=== PATIENT | female | born 1930 | race Caucasian/White ===

== ENCOUNTER 2017-10-20 15:08 | Inpatient (IN) | payer MEDICARE, BC ==
[~2017-10-20] VITALS: Ht 165.1 cm; Wt 67.6 kg
[~2017-10-20 15:08] MED LIST: AMLO1TAB2 PO; ASPI-482 PO; CHOL100013 PO; LORA10CA PO; NITR100C62 PO; VALS1TAB14 PO; VALS1TAB18 PO
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
[2017-10-20] MEDS ORDERED: IV NORMAL SALINE 1,000ML 1,000 ML IV SCH (15:30)
[2017-10-20] MEDS ORDERED: DIPHTH,PERTUSS(ACELL),TET TOX 0.5 ML DISP.SYRIN. VAX IM ONE (15:30)
--- NOTE | 2017-10-20 15:45 | EKG ---
[address] [address] Test Date: 2017-10-20 Test Time: 15:40:57 Pat Name: BETTY BLOOM Department: Room: Gender: F Canal Driver: PAULINA : 1930 Requested By: MELIZA HUSAIN Order Number: [id number] Reading MD: Measurements Intervals [place] Rate: 47 P: 0 VT: 176 QRS: 95 QRSD: 112 T: -95 QT: 584 QTc: 521 Interpretive Statements SINUS BRADYCARDIA RIGHTWARD AXIS INCOMPLETE RIGHT BUNDLE BRANCH BLOCK QRS(T) CONTOUR ABNORMALITY CONSIDER INFERIOR MYOCARDIAL DAMAGE T ABNORMALITY IN ANTERIOR LEADS LATERAL LEADS PROLONGED QT ABNORMAL ECG RI6.01 Compared to ECG 09/27/2014 16:02:28 Right-axis deviation now present Incomplete right bundle-branch block now present Prolonged QT interval now present Sinus rhythm no longer present First degree AV block no longer present Left-axis deviation no longer present Myocardial infarct finding no longer present Possible ischemia no longer present T-wave abnormality still present
[2017-10-20 15:54] LABS: BASO # 0.1 x10^3/uL (0.0-0.2); BASO % 0 % (0-3); EOS % 0 % (0-3); HEMATOCRIT 42.1 % (36.0-47.0); LYMPH # 0.7 x10^3/uL (1.0-4.8); LYMPH % 4 % (24-48); MEAN CORPUSCULAR HEMOGLOBIN 30 pg (25-35); MEAN CORPUSCULAR HGB CONC 33 g/dL (31-37); MEAN CORPUSCULAR VOLUME 91 fL (79-100); MONO # 1.2 x10^3/uL (0.0-1.1); MONO % 7 % (0-9); NEUT # 15.3 x10^3uL (1.8-7.7); NEUT % 88 % (31-73); PLATELET COUNT 332 x10^3/uL (140-400); RED BLOOD COUNT 4.63 x10^6/uL (3.50-5.40); WHITE BLOOD COUNT 17.4 x10^3/uL (4.0-11.0)
--- NOTE | 2017-10-20 16:35 | RAD ---
2 views bilateral hip and AP pelvis 10/20/2017 CLINICAL INDICATION: History of left hip fracture and scoliosis, pain after fall. COMPARISON: CT pelvis 09/27/2014. FINDINGS: Internal fixation of the left hip with benign smooth periosteal reaction at the medial aspect of the proximal left femur. There is heterotopic ossification adjacent to the left hip. No evidence of acute fracture or traumatic malalignment. Right femoral head is round without collapse. No evidence of right hip fracture or traumatic malalignment. Mild right hip osteoarthritis. Bilateral proximal thigh vascular calcifications. Right convexity lumbar scoliosis. Diffuse bony demineralization. No diastases of the symphysis pubis or sacroiliac articulations. IMPRESSION: 1. Internal fixation of the left hip without evidence of bony pelvic or bilateral hip fracture or traumatic malalignment. 2. Osteopenia. 3. Mild right hip osteoarthritis. Electronically signed by: Elmer Love MD (10/20/2017 4:32 PM) [facility] [place]
--- NOTE | 2017-10-20 16:42 | RAD ---
CT of the head and cervical spine without contrast History: Patient fell. Head and neck pain. Technique: Standard noncontrast images are obtained through the head and cervical spine. Sagittal and coronal reformations obtained through the facial bones and cervical spine. Exposure: One or more of the following individualized dose reduction techniques were utilized for this examination: 1. Automated exposure control 2. Adjustment of the mA and/or kV according to patient size 3. Use of iterative reconstruction technique. Head Faint low-density in the left cerebellum is thought to be due to beam hardening artifact. No evidence of acute intracranial hemorrhage, mass effect, midline shift or abnormal extra-axial fluid collection. Mild ventricular and sulcal prominence compatible with mild atrophy. Very mild low-density of the white matter bilaterally, a nonspecific finding which is typically due to chronic small vessel ischemic disease in a patient of this age. Intracranial arterial calcifications are identified. Visualized orbits are unremarkable. Visualized paranasal sinuses and mastoids are clear. There is mild deformity of the nasal bones, could indicate a fracture of indeterminate age depending on clinical correlation. No evidence of a depressed skull fracture, although a point of impact is not known. Impression: No evidence of acute intracranial hemorrhage or mass effect. Cervical: Lower skull is unremarkable Ring of C1 is intact Relationship of C1 with the occipital condyles is intact. Relationship of C1 with C2 is maintained. Severe degenerative changes at the articulation of the odontoid process and anterior C1, with some adjacent ossicles. There is posterior soft tissue thickening. Multilevel moderate to severe cervical spondylosis. Facet joint degenerative change. No evidence of jumped or locked facet joint. Mild anterior spondylolisthesis of C4 on C5, measures 5 mm. There is also slight hyperkyphosis here. This is likely degenerative. There is a cervical lordosis. There is at least mild neural foraminal and spinal canal narrowing. No evidence of acute prevertebral swelling or hematoma. Heterogeneity of the thyroid gland. Abnormal opacity in both lung apices would most typically represent scarring. IMPRESSION: 1. Severe degenerative spondylosis. 2. No evidence of acute fracture. 3. Mild anterior subluxation of C4 on C5 with mild hyperkyphosis. This is likely degenerative. However, depending on the level of clinical concern for an acute injury, consider MRI for further evaluation of acute soft tissue injury. Electronically signed by: Carlos Anderson MD (10/20/2017 4:39 PM) [place] [id number]
[2017-10-20 16:47] LABS: BACTERIA,URINE 0 /HPF (0-FEW); BILIRUBIN,URINE NEG (NEG); CLARITY,URINE HAZY; COLOR,URINE YELLOW; GLUCOSE,URINE NEG (NEG); NITRITE,URINE NEG (NEG); SQUAMOUS EPITHELIAL CELL,UR OCC /LPF; UROBILINOGEN,URINE 0.2 mg/dL (0.2 mg/dL); WBC,URINE OCC /HPF (0-4)
[2017-10-20 17:41] LABS: CALCIUM 9.6 mg/dL (8.5-10.1); CREATININE 0.7 mg/dL (0.6-1.0); DIRECT BILIRUBIN 0.3 mg/dL (0.0-0.2); GFR 79.5; MAGNESIUM 2.1 mg/dL (1.8-2.4); POTASSIUM 3.4 mmol/L (3.5-5.1); TOTAL PROTEIN 6.4 g/dL (6.4-8.2)
[2017-10-20] MEDS ORDERED: ASPIRIN 325 MG TABLET PO ONE (18:00)
[2017-10-20] MEDS ORDERED: IV NORMAL SALINE 1,000ML 1,000 ML IV ONE (18:15)
[2017-10-20 19:17] VITALS: BP 143/71
[2017-10-20 19:18] VITALS: BP 143/71
[2017-10-20] MEDS: IV NORMAL SALINE 1,000ML 1,000 ML IV SCH (19:49)
[2017-10-20] MEDS ORDERED: ASPIRIN 81 MG TAB.CHEW PO ONE (20:15)
--- NOTE | 2017-10-20 20:36 | RAD ---
Indication: Pain status post fall. History of left hip replacement. TECHNIQUE: 3 views of the lumbar spine and 3 views of the thoracic spine. COMPARISON: None FINDINGS: Moderate S-shaped scoliosis of the lumbar spine noted without apparent loss of vertebral body heights. There is multilevel loss of intervertebral disc spaces with lower lumbar facet arthropathy. Partially visualized left hip joint appears within normal limits. There is moderate scoliosis of the thoracic spine noted. There is no apparent loss of vertebral body height to suggest significant compression deformity. Multilevel intervertebral disc space narrowing noted. Heart is normal in size. Calcified right paratracheal lymph node noted. Visualized lungs are clear. IMPRESSION: Moderate scoliosis of the thoracolumbar spine limiting optimal evaluation. No apparent loss of vertebral body heights to suggest significant compression deformity. Multilevel degenerative disc disease in the thoracal lumbar spine. If there is a focal tenderness at any particular level then focused CT of the spine may be obtained for further evaluation. Electronically signed by: Daljit Kent DO (10/20/2017 8:33 PM) [facility]
--- NOTE | 2017-10-20 20:45 | RAD ---
Indication: Chest pain status post fall. TECHNIQUE: Portable supine AP chest x-ray COMPARISON: Previous study from 09/27/2014 FINDINGS: Heart is normal in size. Lungs are clear for consolidation. No pneumothorax or pleural effusion. There is a 1.6 cm round radiopacity in the right lower lung zone. Calcified right paratracheal lymph node noted. No acute rib fractures seen. IMPRESSION: 1. No acute cardiopulmonary process. Sub-2 cm nodular opacity in the right lower lung zone may represent a nipple shadow or pulmonary nodule. Nonemergent CT chest recommended for further evaluation. 2. No acute rib fractures visualized. Electronically signed by: Daljit Kent DO (10/20/2017 8:41 PM) [facility]
[2017-10-20] MEDS: ATORVASTATIN CALCIUM 10 MG TABLET. PO SCH (21:55)
[2017-10-20 22:06] LABS: % BASOS 1 % (0-3); % LYMPHS 5 % (24-48); % MONOS 3 % (0-10); % SEGS 91 % (35-66); PLT ESTIMATE INCREASED (ADEQUATE)
[2017-10-20 22:08] LABS: OVALOCYTES OCC; POLYCHROMASIA SLIGHT
[2017-10-20] MEDS ORDERED: CONTRAST GIVEN MC PRN (22:30)
[2017-10-20 22:57] VITALS: BP 110/52
[2017-10-20] MEDS ORDERED: IOHEXOL 300 MG/ML 75 ML VIAL. IV ONE (23:00)
--- NOTE | 2017-10-21 00:43 | RAD ---
CTA Chest with contrast: Clinical History: Omni 300, 75ml IV. Elevated d-dimer Shortness of breath. Axial helical images of the chest were obtained after the administration of 75 cc of IV Omni 300 and timed appropriately for a pulmonary arterial study. Conventional axial reconstruction was performed in addition to coronal, sagittal and bilateral oblique MIP (maximum intensity projection). This study was ordered to detect possible pulmonary embolism. COMPARISON: September 28, 2014 There are no filling defects to suggest pulmonary embolism. There is S-shaped scoliosis of the thoracic spine. There is a tiny left effusion. Linear opacities in the lung bases are seen. There is no mediastinal or hilar lymphadenopathy. The thoracic aorta appears normal. Impression: 1. No evidence of pulmonary embolism. 2. Tiny left effusion. Linear opacities in the lung bases are likely discoid atelectasis. PQRS Compliance Statement: One or more of the following individualized dose reduction techniques were utilized for this examination: 1. Automated exposure control 2. Adjustment of the mA and/or kV according to patient size 3. Use of iterative reconstruction technique Electronically signed by: Rinku Cadet III, MD (10/21/2017 12:40 AM) [facility]
[2017-10-21] MEDS: IV NORMAL SALINE 1,000ML 1,000 ML IV SCH ×3 (04:48→20:30)
[2017-10-21 05:36] VITALS: BP 139/53
[2017-10-21 07:29] LABS: BASO # 0.1 x10^3/uL (0.0-0.2); BASO % 0 % (0-3); EOS # 0.3 x10^3/uL (0.0-0.7); EOS % 2 % (0-3); HEMATOCRIT 35.5 % (36.0-47.0); HEMOGLOBIN 11.8 g/dL (12.0-15.5); LYMPH # 0.9 x10^3/uL (1.0-4.8); LYMPH % 7 % (24-48); MEAN CORPUSCULAR HEMOGLOBIN 30 pg (25-35); MEAN CORPUSCULAR HGB CONC 33 g/dL (31-37); MEAN CORPUSCULAR VOLUME 90 fL (79-100); MONO # 1.2 x10^3/uL (0.0-1.1); MONO % 9 % (0-9); NEUT # 10.8 x10^3uL (1.8-7.7); NEUT % 81 % (31-73); PLATELET COUNT 291 x10^3/uL (140-400); RED BLOOD COUNT 3.93 x10^6/uL (3.50-5.40); WHITE BLOOD COUNT 13.3 x10^3/uL (4.0-11.0)
[2017-10-21 07:43] LABS: CALCIUM 8.8 mg/dL (8.5-10.1); CREATININE 0.9 mg/dL (0.6-1.0); GFR 59.5; POTASSIUM 3.2 mmol/L (3.5-5.1)
[2017-10-21] MEDS: hydroCHLOROthiazide 25 MG TABLET PO SCH (08:54)
[2017-10-21] MEDS: ASPIRIN 81 MG TAB.CHEW PO SCH (08:54)
[2017-10-21] MEDS: amLODIPine BESYLATE 10 MG TABLET PO SCH (08:54)
[2017-10-21] MEDS: CHOLECALCIFEROL (VITAMIN D3) 1,000 UNIT TABLET PO SCH (08:54)
[2017-10-21] MEDS: LOSARTAN 50 MG TABLET. PO SCH (08:55)
[2017-10-21] MEDS: CETIRIZINE HCL 10 MG TABLET PO SCH (08:55)
[2017-10-21] MEDS: NITROFURANTOIN MONOHYD/M-CRYST 100 MG CAPSULE. PO SCH (08:55)
[2017-10-21] MEDS ORDERED: ASPIRIN ENTERIC COATED 81 MG TABLET.DR. PO SCH (09:00)
[2017-10-21] MEDS ORDERED: VALSARTAN PO SCH (09:00)
[2017-10-21] MEDS ORDERED: AMLODIPINE PO SCH (09:00)
[2017-10-21] MEDS ORDERED: ATORVASTATIN PO SCH (09:00)
[2017-10-21] MEDS ORDERED: HYDROCHLOROTHIAZIDE PO SCH (09:00)
[2017-10-21 10:54] VITALS: BP 128/47
[2017-10-21] MEDS: POTASSIUM CHLORIDE 8 MEQ TABLET.ER. PO SCH (12:56)
[2017-10-21] MEDS: CLINDAMYCIN 300 MG in IV DEXTROSE 5% 50 ML IV SCH ×2 (13:00→21:58)
[2017-10-21 15:54] VITALS: BP 132/68
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
[2017-10-21 19:57] VITALS: BP 106/55
[2017-10-21] MEDS: ATORVASTATIN CALCIUM 10 MG TABLET. PO SCH (20:32)
[2017-10-21] MEDS: LACTOBACILLUS RHAMNOSUS GG 1 CAPSULE. PO SCH (20:32)
[2017-10-21] MEDS: NEOMYCIN/BACITRAC/POLY TOPICAL OINTMENT 28GM TUBE. TP SCH (21:12)
[2017-10-21 22:35] VITALS: BP 131/51
[2017-10-22] MEDS: IV NORMAL SALINE 1,000ML 1,000 ML IV SCH (04:00)
[2017-10-22 05:11] VITALS: BP 146/65
[2017-10-22] MEDS: CLINDAMYCIN 300 MG in IV DEXTROSE 5% 50 ML IV SCH (05:21)
[2017-10-22] MEDS ORDERED: POTASSIUM CHLORIDE 8 MEQ TABLET.ER. PO SCH (08:00)
[2017-10-22] MEDS ORDERED: POTASSIUM CHLORIDE 20 MEQ TABLET.ER. PO SCH (08:30)
[2017-10-22] MEDS: NITROFURANTOIN MONOHYD/M-CRYST 100 MG CAPSULE. PO SCH (09:01)
[2017-10-22] MEDS: amLODIPine BESYLATE 10 MG TABLET PO SCH (09:01)
[2017-10-22] MEDS: ASPIRIN 81 MG TAB.CHEW PO SCH (09:01)
[2017-10-22] MEDS: CETIRIZINE HCL 10 MG TABLET PO SCH (09:01)
[2017-10-22] MEDS: LACTOBACILLUS RHAMNOSUS GG 1 CAPSULE. PO SCH (09:01)
[2017-10-22] MEDS: hydroCHLOROthiazide 25 MG TABLET PO SCH (09:01)
[2017-10-22] MEDS: CHOLECALCIFEROL (VITAMIN D3) 1,000 UNIT TABLET PO SCH (09:01)
[2017-10-22] MEDS: LOSARTAN 50 MG TABLET. PO SCH (09:01)
[2017-10-22] MEDS: POTASSIUM CHLORIDE 8 MEQ TABLET.ER. PO SCH (09:02)
[2017-10-22] MEDS: NEOMYCIN/BACITRAC/POLY TOPICAL OINTMENT 28GM TUBE. TP SCH (09:03)
[2017-10-22 09:18] LABS: BASO % 0 % (0-3); EOS # 0.6 x10^3/uL (0.0-0.7); EOS % 5 % (0-3); HEMATOCRIT 39.4 % (36.0-47.0); HEMOGLOBIN 12.8 g/dL (12.0-15.5); LYMPH # 1.4 x10^3/uL (1.0-4.8); LYMPH % 13 % (24-48); MEAN CORPUSCULAR HEMOGLOBIN 30 pg (25-35); MEAN CORPUSCULAR HGB CONC 33 g/dL (31-37); MEAN CORPUSCULAR VOLUME 92 fL (79-100); MONO % 9 % (0-9); NEUT # 8.2 x10^3uL (1.8-7.7); NEUT % 73 % (31-73); PLATELET COUNT 305 x10^3/uL (140-400); RED BLOOD COUNT 4.28 x10^6/uL (3.50-5.40); WHITE BLOOD COUNT 11.3 x10^3/uL (4.0-11.0)
[2017-10-22 09:28] LABS: CALCIUM 8.7 mg/dL (8.5-10.1); CREATININE 0.9 mg/dL (0.6-1.0); GFR 59.5; POTASSIUM 3.4 mmol/L (3.5-5.1)
--- NOTE | 2017-10-22 09:30 | PDOC2 ---
CONSULT Date of Admission DATE: 10/22/17 TIME: 09:21 Reason for Consult: elevated trop Problem List Problems Medical Problems: (1) Weakness Status: Acute History of Present Illness Ms Kauffman is an 84 year old female who presented to the ED after a fall at home. She reports that she was feeling lightheaded and weak and fell. She was unable to get up and crawled to the phone for help. She reports several episodes of weakness including a near fall recently when taking her laundry down her stairs. She denies chest pain or palpitations. She denies any heart problems but does see Dr Montes yearly and has a listed allergy to sotalol though she denies atrial fibrillation. She reports a cough with clear sputum. She reports episodes of diaphoresis and flushed feeling but denies fever. She denies congestive symptoms. She lives in her own home and does her own chores and shopping. Past Medical History arthritis, hypertension, sinusitis, asthma, left hip fracture. Past Surgical History Hysterectomy, tonsillectomy, face lift, left knee replacement, and left hip repair x2. Family History non contributory due to age Social History non smoker, no significant ETOH, no illicit drugs, . Current Medications Current Medications Sodium Chloride 1,000 ml @ 1,000 mls/hr Q1H IV Last administered on 10/20/17at 15:20; Start 10/20/17 at 15:30; Stop 10/20/17 at 16:29; Status DC Diphtheria/ Tetanus/Acell Pertussis (Boostrix) 0.5 ml ONCE ONCE VAX IM Last administered on 10/21/17at 12:58; Start 10/20/17 at 15:30; Stop 10/20/17 at 15:36 ; Status DC Aspirin (Vianney Aspirin) 325 mg 1X ONCE PO ; Start 10/20/17 at 18:00; Stop 10/20 at 18:02; Status DC Sodium Chloride 1,000 ml @ 75 mls/hr 1X ONCE IV ; Start 10/20/17 at 18:15; Stop 10/21/17 at 07:35; Status DC Aspirin (Aspirin Enteric Coated) 81 mg DAILY PO ; Start 10/21/17 at 09:00; Stop 10/21/17 at 09:00; Status DC Nitrofurantoin Macrocrystals (Macrobid) 100 mg DAILY PO Last administered on 09:01; Start 10/21/17 at 09:00 Non-Formulary Medication (Amlodipine/ Atorvastatin (Caduet 10 Mg-10 Mg Tablet)) 1 each DAILY PO ; Start 10/21/17 at 09:00; Status UNV Vitamin D (Vitamin D3) 1,000 unit DAILY PO Last administered on 10/22/17 09:01 ; Start 10/21/17 at 09:00 Cetirizine HCl (ZyrTEC) 10 mg DAILY PO Last administered on 10/22/17 09:01; Start 10/21/17 at 09:00 Non-Formulary Medication (Valsartan/ Hydrochlorothiazide (Diovan Hct 160-25 Mg Tablet)) 1 each DAILY PO ; Start 10/21/17 at 09:00; Status UNV Sodium Chloride 1,000 ml @ 125 mls/hr Q8H IV Last administered on 10/22/17 04 :00; Start 10/20/17 at 20:00 Amlodipine Besylate (Norvasc) 10 mg DAILY PO Last administered on 10/22/17 09: 01; Start 10/21/17 at 09:00 Atorvastatin Calcium (Lipitor) 10 mg QHS PO Last administered on 10/21/17 20: 32; Start 10/20/17 at 21:00 Losartan Potassium (Cozaar) 100 mg DAILY PO Last administered on 10/22/17 09: 01; Start 10/21/17 at 09:00 Hydrochlorothiazide (Hydrodiuril) 25 mg DAILY PO Last administered on 09:01; Start 10/21/17 at 09:00 Aspirin (Children'S Aspirin) 324 mg 1X ONCE PO Last administered on 10/20/17at 20:16; Start 10/20/17 at 20:15; Stop 10/20/17 at 20:16; Status DC Aspirin (Children'S Aspirin) 81 mg DAILYWBKFT PO Last administered on 09:01; Start 10/21/17 at 08:00 Iohexol (Omnipaque 300 Mg/ml) 75 ml 1X ONCE IV Last administered on 10/21/17at 00:14; Start 10/20/17 at 23:00; Stop 10/20/17 at 23:01; Status DC Info (Do NOT chart on this entry -- for MONITORING) 1 each PRN DAILY PRN MC SEE COMMENTS; Start 10/20/17 at 22:30; Stop 10/22/17 at 22:29 Potassium Chloride (Klor-Con 8) 8 meq DAILYWBKFT PO ; Start 10/22/17 at 08:00; Stop 10/22/17 at 08:00; Status DC Potassium Chloride (Klor-Con 8) 8 meq DAILYWBKFT PO Last administered on at 09:02; Start 10/21/17 at 11:00 Clindamycin Phosphate 300 mg/ Dextrose 52 ml @ 104 mls/hr Q8HRS IV Last administered on 10/22/17at 05:21; Start 10/21/17 at 14:00 Lactobacillus Rhamnosus (Culturelle) 1 cap BID PO Last administered on at 09:01; Start 10/21/17 at 21:00 Neomycin/ Polymyxin/ Bacitracin (Triple Antibiotic) 1 haylee BID TP Last administered on 10/22/17at 09:03; Start 10/21/17 at 21:00 Potassium Chloride (Klor-Con) 20 meq DAILYWBKFT PO Last administered on at 09:03; Start 10/22/17 at 08:30 Active Scripts Active Reported Macrobid 100 Mg Capsule (Nitrofurantoin Monohyd/M-Cryst) 100 Mg Capsule 100 Mg PO DAILY Diovan Hct 160-25 Mg Tablet (Valsartan/Hydrochlorothiazide) 1 Each Tablet 1 Each PO DAILY Caduet 10 Mg-10 Mg Tablet (Amlodipine/Atorvastatin) 1 Each Tablet 1 Each PO DAILY Aspir 81 (Aspirin) 81 Mg Tablet.dr 81 Mg PO DAILY Vitamin D (Cholecalciferol (Vitamin D3)) 1,000 Unit Capsule 1,000 Unit PO DAILY Claritin (Loratadine) 10 Mg Capsule 10 Mg PO DAILY Allergies: Coded Allergies: Sulfa (Sulfonamide Antibiotics) (Verified Allergy, Intermediate, 09/27/14) aspirin (Verified Allergy, Intermediate, 09/27/14) only vianney adult aspirin carvedilol (Verified Allergy, Intermediate, 09/27/14) cefdinir (Verified Allergy, Intermediate, 09/27/14) ciprofloxacin (Verified Allergy, Intermediate, 09/27/14) clarithromycin (Verified Allergy, Intermediate, 09/27/14) codeine (Verified Allergy, Intermediate, 09/27/14) eprosartan (Verified Allergy, Intermediate, 09/27/14) etodolac (Verified Allergy, Intermediate, 09/27/14) guaifenesin (Verified Allergy, Intermediate, 09/27/14) levallorphan (Verified Allergy, Intermediate, 09/27/14) meloxicam (Verified Allergy, Intermediate, 09/27/14) methocarbamol (Verified Allergy, Intermediate, 09/27/14) oxaprozin (Verified Allergy, Intermediate, 09/27/14) penicillin G (Verified Allergy, Intermediate, 09/27/14) quinine (Verified Allergy, Intermediate, 09/27/14) ropinirole (Verified Allergy, Intermediate, 09/27/14) sotalol (Verified Allergy, Intermediate, 09/27/14) tetracycline (Verified Allergy, Intermediate, 09/27/14) egg (Verified Allergy, Mild, 09/29/14) General: Alert, Oriented X3, Cooperative, No acute distress, Other (scoliosis) HEENT: Atraumatic, Other (right facial droop, chronic) Lungs: Other (decreased bases, otherwise clear) Heart: Other (regular rhythm, bradycardic) Abdomen: Normal bowel sounds, Soft, No tenderness Extremities: No cyanosis, Other (trace edema, chronic venous stasis changes) Neuro: Other (weakness) Psych/Mental Status: Mental status NL, Mood NL VITALS Vital Signs Date Time Temp Pulse Resp B/P (MAP) Pulse Ox O2 Delivery O2 Flow Rate FiO2 10/22/17 09:01 42 146/65 10/22/17 08:00 Room Air 10/22/17 05:11 97.4 18 96 Labs Laboratory Tests Test 10/20/17 15:35 10/20/17 16:25 10/20/17 19:25 10/20/17 20:55 White Blood Count 17.4 x10^3/uL (4.0-11.0) Red Blood Count 4.63 x10^6/uL (3.50-5.40) Hemoglobin 14.0 g/dL (12.0-15.5) Hematocrit 42.1 % (36.0-47.0) Mean Corpuscular Volume 91 fL (79-100) Mean Corpuscular Hemoglobin 30 pg (25-35) Mean Corpuscular Hemoglobin Concent 33 g/dL (31-37) Red Cell Distribution Width 14.0 % (11.5-14.5) Platelet Count 332 x10^3/uL (140-400) Neutrophils (%) (Auto) 88 % (31-73) Lymphocytes (%) (Auto) 4 % (24-48) Monocytes (%) (Auto) 7 % (0-9) Eosinophils (%) (Auto) 0 % (0-3) Basophils (%) (Auto) 0 % (0-3) Neutrophils # (Auto) 15.3 x10^3uL (1.8-7.7) Lymphocytes # (Auto) 0.7 x10^3/uL (1.0-4.8) Monocytes # (Auto) 1.2 x10^3/uL (0.0-1.1) Eosinophils # (Auto) 0.0 x10^3/uL (0.0-0.7) Basophils # (Auto) 0.1 x10^3/uL (0.0-0.2) Segmented Neutrophils % 91 % (35-66) Lymphocytes % 5 % (24-48) Monocytes % 3 % (0-10) Basophils % 1 % (0-3) Platelet Estimate Increased (ADEQUATE) Large Platelets Occ Polychromasia Slight Ovalocytes Occ Sodium Level 143 mmol/L (136-145) Potassium Level 3.4 mmol/L (3.5-5.1) Chloride Level 107 mmol/L (98-107) Carbon Dioxide Level 25 mmol/L (21-32) Anion Gap 11 (6-14) Blood Urea Nitrogen 27 mg/dL (7-20) Creatinine 0.7 mg/dL (0.6-1.0) Estimated GFR (Cockcroft-Gault) 79.5 Glucose Level 89 mg/dL (70-99) Calcium Level 9.6 mg/dL (8.5-10.1) Magnesium Level 2.1 mg/dL (1.8-2.4) Total Bilirubin 1.0 mg/dL (0.2-1.0) Direct Bilirubin 0.3 mg/dL (0.0-0.2) Aspartate Amino Transf (AST/SGOT) 151 U/L (15-37) Alanine Aminotransferase (ALT/SGPT) 83 U/L (14-59) Alkaline Phosphatase 54 U/L (46-116) Creatine Kinase 3080 U/L (26-192) Creatine Kinase MB (Mass) 99.5 ng/mL (0.0-3.6) Creatine Kinase MB Relative Index 3.2 % (0-4) Troponin I Quantitative 0.232 ng/mL (0-0.055) 0.203 ng/mL (0-0.055) Total Protein 6.4 g/dL (6.4-8.2) Albumin 3.0 g/dL (3.4-5.0) Thyroid Stimulating Hormone (TSH) 1.241 uIU/mL (0.358-3.740) Urine Collection Type U cath Urine Color Yellow Urine Clarity Hazy Urine pH 5.0 Urine Specific [place] >=1.030 Urine Protein >100 mg/dl (NEG-TRACE) Urine Glucose (UA) Neg mg/dL (NEG) Urine Ketones (Stick) 40 mg/dL (NEG) Urine Blood Large (NEG) Urine Nitrite Neg (NEG) Urine Bilirubin Neg (NEG) Urine Urobilinogen Dipstick 0.2 mg/dL (0.2 mg/dL) Urine Leukocyte Esterase Neg (NEG) Urine RBC 3-5 /HPF (0-2) Urine WBC Occ /HPF (0-4) Urine Squamous Epithelial Cells Occ /LPF Urine Bacteria 0 /HPF (0-FEW) Urine Mucus Slight /LPF D-Dimer (Elizabeth) 0.82 mg/L (0.00-0.50) Lactic Acid Level 1.0 mmol/L (0.4-2.0) LB-Sro-O-Type Natriuretic Peptide 8796 pg/mL (0-449) Test 10/20/17 23:50 10/21/17 06:58 10/22/17 09:03 Troponin I Quantitative 0.203 ng/mL (0-0.055) White Blood Count 13.3 x10^3/uL (4.0-11.0) 11.3 x10^3/uL (4.0-11.0) Red Blood Count 3.93 x10^6/uL (3.50-5.40) 4.28 x10^6/uL (3.50-5.40) Hemoglobin 11.8 g/dL (12.0-15.5) 12.8 g/dL (12.0-15.5) Hematocrit 35.5 % (36.0-47.0) 39.4 % (36.0-47.0) Mean Corpuscular Volume 90 fL (79-100) 92 fL (79-100) Mean Corpuscular Hemoglobin 30 pg (25-35) 30 pg (25-35) Mean Corpuscular Hemoglobin Concent 33 g/dL (31-37) 33 g/dL (31-37) Red Cell Distribution Width 14.0 % (11.5-14.5) 14.0 % (11.5-14.5) Platelet Count 291 x10^3/uL (140-400) 305 x10^3/uL (140-400) Neutrophils (%) (Auto) 81 % (31-73) 73 % (31-73) Lymphocytes (%) (Auto) 7 % (24-48) 13 % (24-48) Monocytes (%) (Auto) 9 % (0-9) 9 % (0-9) Eosinophils (%) (Auto) 2 % (0-3) 5 % (0-3) Basophils (%) (Auto) 0 % (0-3) 0 % (0-3) Neutrophils # (Auto) 10.8 x10^3uL (1.8-7.7) 8.2 x10^3uL (1.8-7.7) Lymphocytes # (Auto) 0.9 x10^3/uL (1.0-4.8) 1.4 x10^3/uL (1.0-4.8) Monocytes # (Auto) 1.2 x10^3/uL (0.0-1.1) 1.0 x10^3/uL (0.0-1.1) Eosinophils # (Auto) 0.3 x10^3/uL (0.0-0.7) 0.6 x10^3/uL (0.0-0.7) Basophils # (Auto) 0.1 x10^3/uL (0.0-0.2) 0.0 x10^3/uL (0.0-0.2) Sodium Level 144 mmol/L (136-145) Potassium Level 3.2 mmol/L (3.5-5.1) Chloride Level 110 mmol/L (98-107) Carbon Dioxide Level 23 mmol/L (21-32) Anion Gap 11 (6-14) Blood Urea Nitrogen 37 mg/dL (7-20) Creatinine 0.9 mg/dL (0.6-1.0) Estimated GFR (Cockcroft-Gault) 59.5 Glucose Level 93 mg/dL (70-99) Calcium Level 8.8 mg/dL (8.5-10.1) Creatine Kinase 1224 U/L (26-192) Images EKG - CHB, nonspecific st/t abn CXR - IMPRESSION: 1. No acute cardiopulmonary process. Sub-2 cm nodular opacity in the right lower lung zone may represent a nipple shadow or pulmonary nodule. Nonemergent CT chest recommended for further evaluation. 2. No acute rib fractures visualized. Assessment/Plan 1. CHB - review all home meds for possible contributing factors. She prefers to go to and Dr Montse as she has seen him in the past. Suggest transfer for possible PPM placement. 2. s/p fall, suspect syncope secondary to #1. 3. trop elevation, mild - no anginal symptoms. Transfer to [facility] for possible PPM. Problems: RAKESH CARRASCO APRN Oct 22, 2017 09:30
[2017-10-22 11:10] VITALS: BP 139/57
--- NOTE | 2017-10-22 11:40 | EKG ---
[address] [address] Test Date: 2017-10-22 Test Time: 09:46:01 Pat Name: BETTY BLOOM Department: Room: 124 A Gender: F Digital Media Director: JOCELYNN : 1930 Requested By: HOMER AGUAYO Order Number: [id number] Reading MD: Measurements Intervals [place] Rate: 44 P: DC: QRS: -41 QRSD: 102 T: 133 QT: 488 QTc: 421 Interpretive Statements IRREGULAR RHYTHM, NO P-WAVE FOUND ABNORMAL LEFT AXIS DEVIATION LEFT ANTERIOR FASCICULAR BLOCK LVH WITH REPOLARIZATION ABNORMALITY QRS(T) CONTOUR ABNORMALITY CONSISTENT WITH ANTERIOR INFARCT AGE UNDETERMINED ABNORMAL ECG RI6.01 No previous ECG available for comparison
[2017-10-22] MEDS ORDERED: CLINDAMYCIN HCL 150 MG CAPSULE PO SCH (12:00)
--- NOTE | 2017-10-22 19:04 | PN ---
DATE: SUBJECTIVE: The patient admitted falling at home. She is extremely weak, difficulty walking. Her heart rate dropped down in the 40s this morning. OBJECTIVE: VITAL SIGNS: Blood pressure 146/65, pulse in the low 40s, respiratory rate 18. LUNGS: Diminished. LABORATORY DATA: Pending. Cellulitis ____ somewhat improved with clindamycin recommended by the Pharmacy. HOMER AGUAYO MD DR: ELVIRA/angelica JOB#: [id number] / [id number]
== END 2017-10-22 11:42 | disposition short-term general hospital (02) | DRG 872 ==
LOC: ER 15:08 → 1 SOUTH 18:34
PROVIDERS: ADMIT Family Medicine; ATTEND Family Medicine
DX: A41.9 Sepsis, unspecified organism (principal); I44.2 Atrioventricular block, complete; L03.113 Cellulitis of right upper limb; M41.9 Scoliosis, unspecified; L03.114 Cellulitis of left upper limb; W10.8XXA Fall (on) (from) other stairs and steps, initial encounter; S50.312A Abrasion of left elbow, initial encounter; S50.311A Abrasion of right elbow, initial encounter; E78.00 Pure hypercholesterolemia, unspecified; I10 Essential (primary) hypertension; S80.212A Abrasion, left knee, initial encounter; M19.90 Unspecified osteoarthritis, unspecified site; I25.10 Atherosclerotic heart disease of native coronary artery without angina pectoris; J45.909 Unspecified asthma, uncomplicated; M81.0 Age-related osteoporosis without current pathological fracture; Z96.652 Presence of left artificial knee joint; R26.2 Difficulty in walking, not elsewhere classified; S80.211A Abrasion, right knee, initial encounter; Z88.5 Allergy status to narcotic agent; Z88.0 Allergy status to penicillin; Z88.2 Allergy status to sulfonamides; Z88.8 Allergy status to other drugs, medicaments and biological substances; Z88.6 Allergy status to analgesic agent; Z88.1 Allergy status to other antibiotic agents; Z91.012 Allergy to eggs; Z90.710 Acquired absence of both cervix and uterus; Z90.89 Acquired absence of other organs; Z87.440 Personal history of urinary (tract) infections; Z79.82 Long term (current) use of aspirin; Z79.899 Other long term (current) drug therapy; Z91.81 History of falling; Y93.89 Activity, other specified; Y92.098 Other place in other non-institutional residence as the place of occurrence of the external cause; Y99.8 Other external cause status
CPT/HCPCS: 36415; 70450; 71045; 71275; 72072; 72100; 72125; 73521; 80048; 80061; 80076; 81001; 82550; 82553; 82607; 83605; 83735; 83880; 84443; 84484; 85007; 85025; 85379; 90715; 93005; 96360; 96361; Q9967; 99285-25; J7030

== ENCOUNTER 2017-12-29 11:24 | Inpatient (IN) | payer MEDICARE, BC ==
[~2017-12-29] VITALS: Ht 167.6 cm; Wt 65.0 kg
[2017-12-29] MEDS ORDERED: IV NORMAL SALINE 1,000ML 1,000 ML IV SCH (11:40)
[2017-12-29 12:01] LABS: BASO # 0.1 x10^3/uL (0.0-0.2); BASO % 1 % (0-3); EOS % 0 % (0-3); HEMATOCRIT 43.8 % (36.0-47.0); HEMOGLOBIN 14.4 g/dL (12.0-15.5); LYMPH # 0.5 x10^3/uL (1.0-4.8); LYMPH % 4 % (24-48); MEAN CORPUSCULAR HEMOGLOBIN 29 pg (25-35); MEAN CORPUSCULAR HGB CONC 33 g/dL (31-37); MEAN CORPUSCULAR VOLUME 89 fL (79-100); MONO # 1.1 x10^3/uL (0.0-1.1); MONO % 7 % (0-9); NEUT # 13.4 x10^3uL (1.8-7.7); NEUT % 89 % (31-73); PLATELET COUNT 274 x10^3/uL (140-400); RED BLOOD COUNT 4.92 x10^6/uL (3.50-5.40); RED CELL DISTRIBUTION WIDTH 14.7 % (11.5-14.5); WHITE BLOOD COUNT 15.1 x10^3/uL (4.0-11.0)
--- NOTE | 2017-12-29 12:01 | PHYS DOC ---
Past History Past Medical History: Arthritis, CAD, High Cholesterol, UTI Past Surgical History: Other Alcohol Use: None Drug Use: None Adult General HPI HPI 87-year-old female presents via EMS for a fall at home and possible stroke with unknown downtime. The patient was found in her home entryway facedown by EMS. She was able to speak without slurred speech. She was not able to stand up. They found her house to be eaten in order except for bathroom with as well as a small amount of blood on the floor and a walker tipped over. She is moving all extremities morning [facility]. She was able to answer most of the questions appropriately. Patient tells me that she got dizzy and fell over her walker and then was unable to get up. She states that this happened yesterday. She says that she struggled to get up all day and all night. She has a facial droop on the right side of her face. She denies any pain at this time. She admits to being tired and thirsty. Review of Systems Review of Systems Constitutional: Denies fever or chills [] Eyes: Denies change in visual acuity, redness, or eye pain [] HENT: Denies nasal congestion or sore throat [] Respiratory: Denies cough or shortness of breath [] Cardiovascular: No additional information not addressed in HPI [] GI: Denies abdominal pain, nausea, vomiting, bloody stools or diarrhea [] : Denies dysuria or hematuria [] Musculoskeletal: Denies back pain or joint pain [] Integument: Denies rash or skin lesions [] Neurologic: Denies headache, focal weakness or sensory changes. Review of her chart shows that the right-sided facial droop is not new[] Endocrine: Denies polyuria or polydipsia [] All other systems were reviewed and found to be within normal limits, except as documented in this note. Current Medications Current Medications Current Medications Medications (Trade) Dose Ordered Sig/Keiry Start Time Stop Time Status Last Admin Dose Admin Sodium Chloride 1,000 ml @ 1,000 mls/hr Q1H 12/29/17 11:40 12/29/17 12:39 Allergies Allergies Allergies Coded Allergies Type Severity Reaction Last Updated Verified Sulfa (Sulfonamide Antibiotics) Allergy Intermediate 09/27/14 Yes aspirin Allergy Intermediate 09/27/14 Yes carvedilol Allergy Intermediate 09/27/14 Yes cefdinir Allergy Intermediate 09/27/14 Yes ciprofloxacin Allergy Intermediate 09/27/14 Yes clarithromycin Allergy Intermediate 09/27/14 Yes codeine Allergy Intermediate 09/27/14 Yes eprosartan Allergy Intermediate 09/27/14 Yes etodolac Allergy Intermediate 09/27/14 Yes guaifenesin Allergy Intermediate 09/27/14 Yes levallorphan Allergy Intermediate 09/27/14 Yes meloxicam Allergy Intermediate 09/27/14 Yes methocarbamol Allergy Intermediate 09/27/14 Yes oxaprozin Allergy Intermediate 09/27/14 Yes penicillin G Allergy Intermediate 09/27/14 Yes quinine Allergy Intermediate 09/27/14 Yes ropinirole Allergy Intermediate 09/27/14 Yes sotalol Allergy Intermediate 09/27/14 Yes tetracycline Allergy Intermediate 09/27/14 Yes egg Allergy Mild 09/29/14 Yes Physical Exam Physical Exam Constitutional: Dehydrated, non-toxic appearance. [] HENT: Normocephalic, atraumatic, bilateral external ears normal[] Eyes: PERRLA, EOMI, conjunctiva normal, no discharge. [] Neck: In a cervical collar. [] Cardiovascular:Heart rate regular rhythm, systolic murmur[] Lungs & Thorax: Bilateral breath sounds clear to auscultation [] Abdomen: Bowel sounds normal, soft, no tenderness, no masses, no pulsatile masses. [] Skin: Abrasions on the bilateral elbows. Redness on bilateral knees. These are both consistent with crawling on the floor.[] Back: No tenderness, no CVA tenderness. [] Extremities: No tenderness, no cyanosis, no edema. [] Neurologic: The patient is alert and oriented to person, place and situation. She does not know what day it is. Her answers to most of my questions have been accurate and relevant. She has answered a couple questions in a relative away. She is moving all 4 extremities. She has asymmetry of the right face. Her strength in her arms and legs is equal bilaterally. Her sensation appears to be intact. No obvious focal defects.[] Psychologic: Affect normal, judgement normal, mood normal. [] EKG EKG Paced rhythm, rate 75, ST elevation of 3 mm in 2-3 and aVF. This is likely due to the pacer effect on morphology.[] Radiology/Procedures Radiology/Procedures CT CODE STROKE HEAD WO Date: 12/29/2017 11:26 AM Clinical Indication: code stroke Comparison: CT head and cervical spine dated 10/20/2017. Technique: 5 mm axial tomographic images were obtained of the head without contrast. These were viewed on brain and bone windows. Findings: Motion limits evaluation in the posterior fossa. The brain parenchyma is normal in attenuation. No intra- or extra-axial mass or fluid collection. No acute hemorrhage. The ventricles are normal in size, shape, and morphology. The watson-white matter junction is normal. The basilar cisterns are patent. The visualized paranasal sinuses are normal. The visualized portions of the orbits and globes are normal. The mastoid air cells are clear. No aggressive osseous lesion or fracture. Impression: Motion limits evaluation in the posterior fossa. No acute intracranial process. Of note, MRI is more sensitive for acute infarction less than 24 hours in age. CRITICAL FINDINGS: Findings were discussed with Dr. Morrison at 12:00 PM on 12/29/2017. PQRS Compliance Statement: One or more of the following individualized dose reduction techniques were utilized for this examination: 1. Automated exposure control 2. Adjustment of the mA and/or kV according to patient size 3. Use of iterative reconstruction technique Electronically signed by: Jaya Perez MD (12/29/2017 12:05 PM) [facility] CT CERVICAL SPINE WO CONTRAST DATE: 12/29/2017 11:26 AM INDICATION: code stroke TECHNIQUE: Noncontrast CT of the cervical spine was performed. Sagittal and coronal reformats were performed and evaluated. COMPARISON: CT cervical spine dated 10/20/2017. FINDINGS: Reversal of the normal cervical lordosis centered at C7. Unchanged 1 mm retrolisthesis of C3 on C4. Unchanged 3 mm anterolisthesis of C4 on C5. No acute fracture. No aggressive lytic or blastic osseous lesions. Moderate multilevel degenerative disc space height loss. Multilevel at least mild spinal canal stenosis secondary to disc protrusions and marginal osteophytes. Multilevel at least mild neuroforaminal narrowing secondary to uncovertebral arthrosis. Multilevel moderate facet arthrosis. Unchanged hypoattenuating bilateral thyroid lesions likely related to nodules or cysts. No cervical lymphadenopathy. Bilateral carotid atherosclerosis. The visualized aerodigestive tract is normal. Incompletely visualized pacemaker leads. Unchanged biapical subpleural fibrosis. IMPRESSION: 1. No acute fracture or dislocation. 2. Moderate degenerative cervical spondylosis. Reversal of the normal cervical lordosis. Unchanged 1 mm retrolisthesis of C3 on C4 and 3 mm anterolisthesis of C4 on C5. PQRS Compliance Statement: One or more of the following individualized dose reduction techniques were utilized for this examination: 1. Automated exposure control 2. Adjustment of the mA and/or kV according to patient size 3. Use of iterative reconstruction technique Electronically signed by: Jaya Perez MD (12/29/2017 12:13 PM) [facility] [] Course & Med Decision Making Course & Med Decision Making Pertinent Labs and Imaging studies reviewed. (See chart for details) Based on the EMS report of slurred speech, code stroke was initiated. The patient immediately went to CT upon arrival. Since she was in a cervical collar , she had a head CT and cervical spine CT. I personally reviewed the head CT and the radiology room did not see any obvious bleed. After came back to the room, review of her most recent H&P showed that her right-sided facial droop is pre-existing. She does not appear to have any deficits thus far, though a thorough exam is difficult due to her weakness. We will immediately start fluid rehydration via IV. Labs are pending. Patient has a elevated troponin of 0.127. I reviewed her chart and found her previous 3 troponins were all 0.2 back in October. 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 The patient's official reading of the head CT negative for acute findings. Her cervical CT has significant findings, but they are not new or significantly changed. I removed the patient's cervical collar. The patient's labs reveal that she has an elevated CK of 2700. We will continue to give her IV fluids. Creatinine is normal. Her urinalysis is significant for UTI. The patient has multiple drug allergies including penicillins, cephalosporins, fluoroquinolones. She is able to take medication by mouth so I will order Macrobid for now pending culture and sensitivity. I discussed the patient with Dr. Chapin and he accepted her for admission. Greater then 35 minutes of critical care time was spent on this patient excluding separate billable procedures. [] Dragon Disclaimer Dragon Disclaimer This electronic medical record was generated, in whole or in part, using a voice recognition dictation system. Departure Departure: Referrals: HOMER AGUAYO MD (PCP) ANJEL MORRISON 26, 2018 12:01
--- NOTE | 2017-12-29 12:08 | RAD ---
CT CODE STROKE HEAD WO Date: 12/29/2017 11:26 AM Clinical Indication: code stroke Comparison: CT head and cervical spine dated 10/20/2017. Technique: 5 mm axial tomographic images were obtained of the head without contrast. These were viewed on brain and bone windows. Findings: Motion limits evaluation in the posterior fossa. The brain parenchyma is normal in attenuation. No intra- or extra-axial mass or fluid collection. No acute hemorrhage. The ventricles are normal in size, shape, and morphology. The watson-white matter junction is normal. The basilar cisterns are patent. The visualized paranasal sinuses are normal. The visualized portions of the orbits and globes are normal. The mastoid air cells are clear. No aggressive osseous lesion or fracture. Impression: Motion limits evaluation in the posterior fossa. No acute intracranial process. Of note, MRI is more sensitive for acute infarction less than 24 hours in age. CRITICAL FINDINGS: Findings were discussed with Dr. Castillo at 12:00 PM on 12/29/2017. PQRS Compliance Statement: One or more of the following individualized dose reduction techniques were utilized for this examination: 1. Automated exposure control 2. Adjustment of the mA and/or kV according to patient size 3. Use of iterative reconstruction technique Electronically signed by: Jaya Perez MD (12/29/2017 12:05 PM) [facility]
--- NOTE | 2017-12-29 12:16 | RAD ---
CT CERVICAL SPINE WO CONTRAST DATE: 12/29/2017 11:26 AM INDICATION: code stroke TECHNIQUE: Noncontrast CT of the cervical spine was performed. Sagittal and coronal reformats were performed and evaluated. COMPARISON: CT cervical spine dated 10/20/2017. FINDINGS: Reversal of the normal cervical lordosis centered at C7. Unchanged 1 mm retrolisthesis of C3 on C4. Unchanged 3 mm anterolisthesis of C4 on C5. No acute fracture. No aggressive lytic or blastic osseous lesions. Moderate multilevel degenerative disc space height loss. Multilevel at least mild spinal canal stenosis secondary to disc protrusions and marginal osteophytes. Multilevel at least mild neuroforaminal narrowing secondary to uncovertebral arthrosis. Multilevel moderate facet arthrosis. Unchanged hypoattenuating bilateral thyroid lesions likely related to nodules or cysts. No cervical lymphadenopathy. Bilateral carotid atherosclerosis. The visualized aerodigestive tract is normal. Incompletely visualized pacemaker leads. Unchanged biapical subpleural fibrosis. IMPRESSION: 1. No acute fracture or dislocation. 2. Moderate degenerative cervical spondylosis. Reversal of the normal cervical lordosis. Unchanged 1 mm retrolisthesis of C3 on C4 and 3 mm anterolisthesis of C4 on C5. PQRS Compliance Statement: One or more of the following individualized dose reduction techniques were utilized for this examination: 1. Automated exposure control 2. Adjustment of the mA and/or kV according to patient size 3. Use of iterative reconstruction technique Electronically signed by: Jaya Perez MD (12/29/2017 12:13 PM) [facility]
[2017-12-29 12:25] LABS: ALBUMIN 3.3 g/dL (3.4-5.0); CALCIUM 9.4 mg/dL (8.5-10.1); DIRECT BILIRUBIN 0.3 mg/dL (0.0-0.2); GFR 52.7; POTASSIUM 3.5 mmol/L (3.5-5.1); TOTAL BILIRUBIN 1.3 mg/dL (0.2-1.0)
[2017-12-29 12:59] LABS: BILIRUBIN,URINE NEG (NEG); CLARITY,URINE HAZY; COLOR,URINE YELLOW; GLUCOSE,URINE NEG (NEG)
[2017-12-29 13:00] LABS: BACTERIA,URINE MANY /HPF (0-FEW); NITRITE,URINE POS (NEG); SQUAMOUS EPITHELIAL CELL,UR FEW /LPF; UROBILINOGEN,URINE 0.2 mg/dL (0.2 mg/dL)
[2017-12-29] MEDS ORDERED: MVI, ADULT NO.4 WITH VIT K 10 ML, FOLIC ACID SYRINGE for ER 1 MG, THIAMINE 100 MG in IV... IV ONE ×4 (13:00)
[2017-12-29] MEDS ORDERED: NITROFURANTOIN MONOHYD/M-CRYST 100 MG CAPSULE. PO ONE (13:45)
--- NOTE | 2017-12-29 13:47 | RAD ---
PORTABLE CHEST 1V INDICATION: Fell today, syncope COMPARISON: CTA chest dated 01/21/2018, chest radiograph dated 10/19/2017 FINDINGS: Interval placement of left pectoral transvenous dual-chamber pacemaker with leads in the right atrium and right ventricle. No new consolidation. Unchanged pulmonary vasculature. No pleural effusion or pneumothorax. Unchanged cardiomegaly. Unchanged tortuous thoracic aorta. Unchanged dextrocurvature of the thoracic spine. No acute osseous abnormality. IMPRESSION: 1. No new consolidation. 2. Interval placement of left pacemaker. Electronically signed by: Jaya Perez MD (12/29/2017 1:44 PM) [facility]
[2017-12-29 14:04] LABS: % BANDS 7 % (0-9); % LYMPHS 7 % (24-48); % MONOS 4 % (0-10); % SEGS 82 % (35-66)
[2017-12-29 14:09] LABS: PLT ESTIMATE ADEQUATE (ADEQUATE)
--- NOTE | 2017-12-29 14:53 | EKG ---
[address] [address] Test Date: 2017-12-29 Test Time: 11:53:03 Pat Name: BETTY BLOOM Department: Room: Gender: F [employer] Clerk: JOCELYNN : [id number] Requested By: ANJEL MORRISON Order Number: [id number] Reading MD: Measurements Intervals [place] Rate: 75 P: 39 CO: 196 QRS: -70 QRSD: 154 T: 104 QT: 448 QTc: 503 Interpretive Statements SINUS RHYTHM ATRIAL PREMATURE COMPLEX(ES) ABNORMAL LEFT AXIS DEVIATION NON SPECIFIC INTRAVENTRICULAR BLOCK CONSIDER RIGHT VENTRICULAR HYPERTROPHY QRS(T) CONTOUR ABNORMALITY CONSISTENT WITH INFERIOR INFARCT POSSIBLY RECENT ABNORMAL ECG RI6.01 No previous ECG available for comparison
[2017-12-29 15:00] VITALS: BP 151/57
[2017-12-29] MEDS: AZTREONAM 1 GM in IV NORMAL SALINE 50ML 50 ML IV SCH (16:15)
[2017-12-29] MEDS ORDERED: AZTREONAM 0.5 GM in IV NORMAL SALINE 50ML 50 ML IV SCH (18:00)
[2017-12-29 19:40] VITALS: BP 119/68
[2017-12-29] MEDS: IV NORMAL SALINE 1,000ML 1,000 ML IV SCH (19:57)
[2017-12-29] MEDS: LACTOBACILLUS RHAMNOSUS GG 1 CAPSULE. PO SCH (21:00)
[2017-12-30 00:44] VITALS: BP 138/71
[2017-12-30] MEDS: AZTREONAM 1 GM in IV NORMAL SALINE 50ML 50 ML IV SCH ×2 (02:56→15:41)
[2017-12-30 05:51] VITALS: BP 164/62
[2017-12-30 07:10] LABS: BASO % 0 % (0-3); CALCIUM 8.6 mg/dL (8.5-10.1); CREATININE 0.7 mg/dL (0.6-1.0); EOS # 0.2 x10^3/uL (0.0-0.7); EOS % 1 % (0-3); GFR 79.5; HEMOGLOBIN 12.7 g/dL (12.0-15.5); LYMPH # 0.7 x10^3/uL (1.0-4.8); LYMPH % 6 % (24-48); MEAN CORPUSCULAR HEMOGLOBIN 29 pg (25-35); MEAN CORPUSCULAR HGB CONC 32 g/dL (31-37); MEAN CORPUSCULAR VOLUME 89 fL (79-100); MONO # 1.1 x10^3/uL (0.0-1.1); MONO % 8 % (0-9); NEUT % 85 % (31-73); PLATELET COUNT 229 x10^3/uL (140-400); POTASSIUM 3.2 mmol/L (3.5-5.1); RED BLOOD COUNT 4.38 x10^6/uL (3.50-5.40); RED CELL DISTRIBUTION WIDTH 14.3 % (11.5-14.5)
[2017-12-30] MEDS ORDERED: ELECTROLYTE (NON-ICU) PROTOCOL MC PRN (08:00)
[2017-12-30] MEDS: ATORVASTATIN CALCIUM 10 MG TABLET. PO SCH (08:29)
[2017-12-30] MEDS ORDERED: POTASSIUM CHLORIDE 20 MEQ TABLET.ER. PO ONE ×2 (08:45→13:10)
[2017-12-30] MEDS: ASPIRIN ENTERIC COATED 81 MG TABLET.DR. PO SCH (08:48)
[2017-12-30] MEDS: CETIRIZINE HCL 10 MG TABLET PO SCH (08:48)
[2017-12-30] MEDS: LOSARTAN 50 MG TABLET. PO SCH (08:51)
[2017-12-30] MEDS: amLODIPine BESYLATE 10 MG TABLET PO SCH (08:51)
[2017-12-30] MEDS: LACTOBACILLUS RHAMNOSUS GG 1 CAPSULE. PO SCH ×2 (08:52→21:11)
[2017-12-30] MEDS: CHOLECALCIFEROL (VITAMIN D3) 1,000 UNIT TABLET PO SCH (08:52)
[2017-12-30] MEDS: hydroCHLOROthiazide 25 MG TABLET PO SCH (08:52)
[2017-12-30] MEDS: NITROFURANTOIN MONOHYD/M-CRYST 100 MG CAPSULE. PO SCH (08:52)
[2017-12-30] MEDS ORDERED: ATORVASTATIN PO SCH (09:00)
[2017-12-30] MEDS ORDERED: HYDROCHLOROTHIAZIDE PO SCH (09:00)
[2017-12-30] MEDS ORDERED: AMLODIPINE PO SCH (09:00)
[2017-12-30] MEDS ORDERED: VALSARTAN PO SCH (09:00)
[2017-12-30] MEDS ORDERED: NON FORMULARY ITEM (Loratadine (Claritin) 10 MG) PO SCH (09:00)
[2017-12-30] MEDS: IV NORMAL SALINE 1,000ML 1,000 ML IV SCH ×2 (09:36→21:14)
[2017-12-30 11:01] VITALS: BP 136/62
[2017-12-30] MEDS ORDERED: GENTAMICIN SULFATE 320 MG in IV NORMAL SALINE 100ML 100 ML IV SCH (13:00)
[2017-12-30] MEDS: HEPARIN PF for SUB-Q USE 5,000 UNIT/0.5 ML VIAL. SQ SCH ×2 (13:56→21:12)
--- NOTE | 2017-12-30 14:16 | RAD ---
CT Abdomen and Pelvis without contrast History: Abdominal pain for 2 days Technique: Noncontrast CT imaging was performed of the abdomen and pelvis. Multiplanar images are reviewed. Exposure: One or more of the following individualized dose reduction techniques were utilized for this examination: 1. Automated exposure control 2. Adjustment of the mA and/or kV according to patient size 3. Use of iterative reconstruction technique. Comparison: None Findings: There is some motion degradation. There is mild linear atelectasis or fibrotic change left lung base. Accurate evaluation of abdominal visceral organs is limited without intravenous contrast. There is no obvious abnormality of the spleen, liver, or pancreas. There is no adrenal nodularity. No urolithiasis or hydronephrosis is identified. There is cholelithiasis. Accurate evaluation of bowel is limited without oral contrast. There is some gas distention of segments of the colon with air-fluid levels present, also more retained stool in the distal sigmoid colon. Small bowel is not considered significantly dilated. Appendix cannot be confidently identified if still present. No free air is identified. There is multilevel lumbar degenerative disc disease and facet degenerative change. There is moderate to severe superior lumbar levoscoliosis. There is mild right lateral subluxation L4 relative L5 and mild left lateral subluxation L3 relative to L4 and L2 relative to L3. There is variable lateral recess stenosis of the lumbar spine. There is scattered atherosclerotic calcification abdominal aorta and iliac arteries. There is hardware of the proximal left femur. There is Valentin catheter present in the urinary bladder. Impression: 1. There is some gas distention of the colon and stool retention of the more distal sigmoid colon. Small bowel is not significantly dilated. 2. There is cholelithiasis. 3. There is multilevel lumbar degenerative disc disease, also multilevel facet degenerative change. There is lumbar levoscoliosis and abnormal lateral alignment. Electronically signed by: Sanjeev Ryan MD (12/30/2017 2:13 PM) [facility]
[2017-12-30] MEDS: GENTAMICIN PER PHARMACY MC PRN (14:44)
[2017-12-30 15:28] VITALS: BP 134/54
--- NOTE | 2017-12-30 15:59 | HP ---
ADMIT DATE: 12/30/2017 HISTORY OF PRESENT ILLNESS: This is an 87-year-old female apparently fell at home, possible stroke, unknown date. The patient was found in the entry where face down by EMS without slurred speech. She was not able to stand up; however, the patient has been down on the floor. They do not know how long her walker over tipped. The patient brought in by EMS. She got dizzy, fell over the walker. The patient denied chest pain, but was there overnight at least. She has a facial droop on the right side, but that seems to be I think a long-term standing problem with this patient not unusual. In any case, the patient was admitted for this falling. She looks terribly pale. PAST MEDICAL HISTORY: TIA, cardiac symptoms, pacemaker, hypercholesterolemia, urinary tract infection, incontinence, urinary urgency, musculoskeletal problems, weakness in the legs, arthritis, osteoarthritis, osteoporosis, scoliosis, orthopedic back surgery, joint replacement, diphtheria vaccination, Pneumovax, flu shots all are currently up to date. ALLERGIES: The patient has moderate allergies including SULFUR, ASPIRIN, CARVEDILOL, CEPHALOSPORINS, , LOVENOX, DAYPRO, GUANFACINE, MELOXICAM. She is a DNR. MEDICATIONS: Include Claritin, Macrodantin, Caduet 10/10, Diovan 160/25, aspirin 81, vitamin D. SOCIAL HISTORY: No smoking, no alcohol or drug use. Lives at home by herself. REVIEW OF SYSTEMS: The patient just notes dizziness, lightheadedness, but denies any chest pain. No chest pain, shortness of breath. No melena, hematochezia, or hematemesis and neurologically baseline for her. PHYSICAL EXAMINATION: GENERAL: This is a ill appearing white female, somewhat pale appearing. VITAL SIGNS: Blood pressure 150/57, respirations 16, pulse 76, afebrile. HEENT: The patient's head was atraumatic, normocephalic. Eyes: PERRLA without jaundice. Mouth and throat show some distortion to the face, but she has had this for a number of years. NECK: Supple. LUNGS: Clear. CARDIOVASCULAR: Regular sinus rhythm. ABDOMEN: Soft, nontender. EXTREMITIES: No clubbing, cyanosis or edema. NEUROLOGIC: The patient is alert and oriented to baseline, very weak, tired and alike. LABORATORY DATA: White count 15,000, hemoglobin and hematocrit stable. The patient's chemistry showed potassium 3.2. Troponin 0.127, creatinine 27 and 55. Coags stable. Urine markedly dehydrated with urinary tract infection. IMPRESSION AND PLAN: Orthostasis, falling at home, syncope, urinary tract infection, dehydration, elevated troponins, moderate protein malnutrition. Continue with IV fluids, IV antibiotic therapy. Continue to monitor the patient here in the ICU, make further evaluation on her as indicated. HOMER AGUAYO MD DR: ELVIRA/angelica JOB#: [id number] / [id number]
[2017-12-30] MEDS ORDERED: IOHEXOL 300 MG/ML 75 ML VIAL. IV ONE (17:15)
[2017-12-30] MEDS ORDERED: CONTRAST GIVEN MC PRN (17:45)
[2017-12-30 18:53] VITALS: BP 114/79
--- NOTE | 2017-12-30 18:55 | RAD ---
Examination: CT angiography chest HISTORY: History of chest pain, elevated d-dimer COMPARISON: 10/21/2017 TECHNIQUE: Axial CT angiographic images of the chest were performed with IV contrast. Coronal and sagittal 3-D MIP reformats are performed. Exposure: One or more of the following individualized dose reduction techniques were utilized for this examination: 1. Automated exposure control 2. Adjustment of the mA and/or kV according to patient size 3. Use of iterative reconstruction technique FINDINGS: The central airways are patent. Moderate cardiomegaly. Coronary artery calcifications identified. Aortic atherosclerosis. There is no evidence of filling defect identified in the main pulmonary arterial trunk and the visualized lobar branch of the pulmonary arteries. The evaluation of the distal segmental branches of the bilateral pulmonary arteries is limited. Mild apical scarring changes. Left lingular and left lung base likely pneumonia lung base airspace opacity likely atelectasis or infiltrate identified. In the visualized liver, spleen, grossly appears unremarkable. Moderate degenerative changes thoracic spine. IMPRESSION: 1. No evidence of central pulmonary embolism. Evaluation of the distal segmental branches of the pulmonary arteries is limited. 2. Left lung base airspace and left lingula linear opacities likely atelectasis or infiltrates.. Electronically signed by: Phu Burkett MD (12/30/2017 6:52 PM) [facility]
[2017-12-30] MEDS ORDERED: GENTAMICIN RANDOM LEVEL. MC ONE (22:00)
[2017-12-30 23:29] VITALS: BP 118/48
[2017-12-31] MEDS: AZTREONAM 1 GM in IV NORMAL SALINE 50ML 50 ML IV SCH ×2 (03:05→15:51)
[2017-12-31 03:12] VITALS: BP 148/66
[2017-12-31] MEDS: HEPARIN PF for SUB-Q USE 5,000 UNIT/0.5 ML VIAL. SQ SCH ×3 (05:48→21:14)
[2017-12-31 06:38] LABS: BASO % 0 % (0-3); EOS # 0.5 x10^3/uL (0.0-0.7); EOS % 5 % (0-3); HEMATOCRIT 35.9 % (36.0-47.0); HEMOGLOBIN 11.7 g/dL (12.0-15.5); LYMPH # 0.8 x10^3/uL (1.0-4.8); LYMPH % 9 % (24-48); MEAN CORPUSCULAR HEMOGLOBIN 29 pg (25-35); MEAN CORPUSCULAR HGB CONC 33 g/dL (31-37); MEAN CORPUSCULAR VOLUME 89 fL (79-100); MONO # 1.1 x10^3/uL (0.0-1.1); MONO % 12 % (0-9); NEUT # 7.1 x10^3uL (1.8-7.7); NEUT % 74 % (31-73); PLATELET COUNT 203 x10^3/uL (140-400); RED BLOOD COUNT 4.02 x10^6/uL (3.50-5.40); RED CELL DISTRIBUTION WIDTH 14.5 % (11.5-14.5); WHITE BLOOD COUNT 9.6 x10^3/uL (4.0-11.0)
[2017-12-31 06:41] LABS: CREATININE 0.6 mg/dL (0.6-1.0); POTASSIUM 3.6 mmol/L (3.5-5.1)
--- NOTE | 2017-12-31 08:56 | CARD ---
MR#: [id number] Date of Study: 12/30/2017 Ordering Physician: HOMER AGUAYO, Referring Physician: HOMER AGUAYO, Tech: BRYCE Herman APPROVED REPORT EXAM: Two-dimensional and M-mode echocardiogram with Doppler and color Doppler. Other Information Quality : Poor INDICATION Dyspnea UTI Rhabdomyolsis 2D DIMENSIONS Left Atrium(2D)29.0 (1.6-4.0cm)IVSd1.3 (0.7-1.1cm) Aortic Root(2D)3.5 (2.0-3.7cm)LVDd4.6 (3.9-5.9cm) LVOT Diameter2.2 (1.8-2.4cm)PWd1.2 (0.7-1.1cm) LVDs2.9 (2.5-4.0cm)FS (%) 36.8 % SV64.6 mlLVEF(%)66.7 (>50%) Aortic Valve LVOT Peak Gaurav.105.2cm/s Mitral Valve MV E Opppgtlb989.7cm/sMV DECEL ZTUB350ok MV A Xvsnhivg711.6cm/sMV FHJ36mo E/A Ratio0.7MVA (PHT)4.80cm2 Tricuspid Valve TR P. Rvyvtjln388um/sTR Peak Gr.35mmHg LEFT VENTRICLE The left ventricle is normal size. There is borderline to mild concentric left ventricular hypertroph y. The left ventricular systolic function is normal and the ejection fraction is within normal range. The Ejection Fraction is 60-65%. There is normal LV segmental wall motion. Tissue Doppler imaging re veals moderate left ventricular diastolic dysfunction. RIGHT VENTRICLE The right ventricle is normal size. There is normal right ventricular wall thickness. The right ventr icular systolic function is normal. ATRIA The left atrium size is normal. The right atrium size is normal. There is a pacemaker lead seen in th e right atrium. The interatrial septum is intact with no evidence for an atrial septal defect or garcia nt foramen ovale as noted on 2-D or Doppler imaging. AORTIC VALVE The aortic valve is trileaflet. Doppler and Color Flow revealed mild aortic regurgitation. There is n o significant aortic valvular stenosis. MITRAL VALVE Mitral annular calcification is mild. There is no mitral valve stenosis. Doppler and Color-flow revea led trace mitral regurgitation. TRICUSPID VALVE The tricuspid valve is normal in structure and function. Doppler and Color Flow revealed trace tricus pid regurgitation. There is no tricuspid valve stenosis. PULMONIC VALVE The pulmonary valve is normal in structure and function. Doppler and Color Flow revealed trace pulmon ic valvular regurgitation. There is no pulmonic valvular stenosis. GREAT VESSELS The aortic root is normal in size. There is mild pulmonary artery dilatation. The IVC is normal in si ze and collapses >50% with inspiration. PERICARDIAL EFFUSION There is no pleural effusion. There is no evidence of significant pericardial effusion. Critical Notification Critical Value: No <Conclusion> The left ventricular systolic function is normal and the ejection fraction is within normal range. Th e Ejection Fraction is 60-65%. There is normal LV segmental wall motion. The right atrium size is normal. There is a pacemaker lead seen in the right atrium. Signed by : Manuel Myers, Electronically Approved : 12/31/2017 08:55:55
[2017-12-31] MEDS: ATORVASTATIN CALCIUM 10 MG TABLET. PO SCH (09:00)
[2017-12-31] MEDS: CHOLECALCIFEROL (VITAMIN D3) 1,000 UNIT TABLET PO SCH (10:05)
[2017-12-31] MEDS: hydroCHLOROthiazide 25 MG TABLET PO SCH (10:05)
[2017-12-31] MEDS: LOSARTAN 50 MG TABLET. PO SCH (10:06)
[2017-12-31] MEDS: ASPIRIN ENTERIC COATED 81 MG TABLET.DR. PO SCH (10:09)
[2017-12-31] MEDS: CETIRIZINE HCL 10 MG TABLET PO SCH (10:09)
[2017-12-31] MEDS: NITROFURANTOIN MONOHYD/M-CRYST 100 MG CAPSULE. PO SCH (10:09)
[2017-12-31] MEDS: amLODIPine BESYLATE 10 MG TABLET PO SCH (10:09)
[2017-12-31] MEDS: LACTOBACILLUS RHAMNOSUS GG 1 CAPSULE. PO SCH ×2 (10:09→21:08)
[2017-12-31] MEDS: GENTAMICIN PER PHARMACY MC PRN ×2 (10:31→10:35)
[2017-12-31 11:00] VITALS: BP 134/75
--- NOTE | 2017-12-31 14:59 | RAD ---
Left upper extremity venous Doppler dated 12/31/2017. No comparison available. Clinical data indication: Left upper extremity swelling FINDINGS: Grayscale, color-flow and spectral waveform analysis performed to include the deep venous system of the left upper extremity. Normal compressibility, phasicity and augmentation of flow throughout. There is some soft tissue swelling at the antecubital fossa region. No definite superficial venous thrombosis. IMPRESSION: No evidence of left upper extremity deep vein thrombosis. Electronically signed by: Carlos Palacios MD (12/31/2017 2:55 PM) [facility]
[2017-12-31 15:19] VITALS: BP 150/73
[2017-12-31 20:00] VITALS: BP_SYST 153; BP_SYST 155; BP_DIAS 65; BP_DIAS 79
[2017-12-31 23:30] VITALS: BP 157/73
[2018-01-01] MEDS ORDERED: GENTAMICIN SULFATE 320 MG in IV NORMAL SALINE 100ML 100 ML IV SCH (02:00)
[2018-01-01] MEDS: AZTREONAM 1 GM in IV NORMAL SALINE 50ML 50 ML IV SCH (03:21)
[2018-01-01] MEDS: HEPARIN PF for SUB-Q USE 5,000 UNIT/0.5 ML VIAL. SQ SCH ×2 (06:28→14:50)
[2018-01-01 06:51] LABS: CALCIUM 8.1 mg/dL (8.5-10.1); CREATININE 0.6 mg/dL (0.6-1.0); POTASSIUM 3.2 mmol/L (3.5-5.1)
[2018-01-01] MEDS ORDERED: levoFLOXacin 250 MG TABLET PO SCH (09:00)
[2018-01-01 09:16] VITALS: BP 150/73
--- NOTE | 2018-01-01 09:39 | PN ---
DATE: 12/31/2017 SUBJECTIVE: The patient admitted yesterday for falling at home. Also, urinary tract infection, gram-negative. The patient is resting comfortably, says she feels a little better, little better color. PHYSICAL EXAMINATION: VITAL SIGNS: Blood pressure 140/66, respirations 18, pulse 80, afebrile. HEENT: The patient's head was atraumatic, normocephalic. Eyes: PERRLA without jaundice. The mouth and throat were normal. NECK: Supple, without JVD or thyromegaly. LUNGS: Diminished, but clear. CARDIOVASCULAR: Regular sinus rhythm. ABDOMEN: Soft, nontender. EXTREMITIES: No clubbing, cyanosis. There is trace edema noted. ASSESSMENT AND PLAN: The patient continues to have facial drooping and this is baseline for her, though. In any case, urinary tract infection, gram-negative organism, syncope at home. Continue on IV antibiotic therapy get results back. Her white count finally did decrease as a result of the judicious use of IV antibiotic therapy. HOMER AGUAYO MD DR: ELVIRA/angelica JOB#: [id number] / [id number]
[2018-01-01] MEDS: ASPIRIN ENTERIC COATED 81 MG TABLET.DR. PO SCH (09:44)
[2018-01-01] MEDS: ATORVASTATIN CALCIUM 10 MG TABLET. PO SCH (09:45)
[2018-01-01] MEDS: hydroCHLOROthiazide 25 MG TABLET PO SCH (09:45)
[2018-01-01] MEDS: LACTOBACILLUS RHAMNOSUS GG 1 CAPSULE. PO SCH (09:45)
[2018-01-01] MEDS: LOSARTAN 50 MG TABLET. PO SCH (09:45)
[2018-01-01] MEDS: amLODIPine BESYLATE 10 MG TABLET PO SCH (09:46)
[2018-01-01] MEDS: CETIRIZINE HCL 10 MG TABLET PO SCH (09:46)
[2018-01-01] MEDS: CHOLECALCIFEROL (VITAMIN D3) 1,000 UNIT TABLET PO SCH (09:46)
[2018-01-01] MEDS: NITROFURANTOIN MONOHYD/M-CRYST 100 MG CAPSULE. PO SCH (09:46)
[2018-01-01 15:13] VITALS: BP 143/74
--- NOTE | 2018-01-09 21:20 | DS ---
DATE OF DISCHARGE: 01/01/2018 HOSPITAL COURSE: An 87-year-old female came in through the Emergency Room. The patient was not able to stand up. She was extremely weak, tripped over a walker. She was dizzy, fell on the floor. She may have been on the floor overnight before EMS found her. She looked apparently pale at first. The patient was admitted to the hospital for further evaluation and treatment. She made good progress during the rest of her stay. She was noted to be orthostatic with syncope, urinary tract infection, dehydration, and elevated troponins. The patient made excellent progress. Her urine grew out E. coli, sensitive to most antibiotics. Her other labs were basically showing a white count of 15,000 when she first came in. Her chemistry is a low potassium of 3.2, corrected. She was placed on gentamicin at first not knowing what antibiotic to use. She made excellent progress during the rest of her hospitalization. MRSA screen was negative. The patient had a head CT, basically unremarkable as well as her cervical spine film showing severe degenerative changes, but no acute fractures. She had a abdomen CT and pelvis because of distention, showed cholelithiasis, multiple levels of degenerative disk disease, otherwise basically unremarkable. The patient had multiple levels of degenerative disease in her spine. Otherwise, she made good progress during the rest of her hospitalization and the patient was discharged to the skilled unit at [place] and proper information was sent there, see EMRAD. Decreased activity, PT, OT, and continue all her medications as noted. FINAL DIAGNOSES: Include that of orthostasis, syncope, urinary tract infection with Escherichia Coli, dehydration, elevated troponins, moderate protein malnutrition, hypokalemia. Echocardiogram was performed showed excellent ejection fraction of 60-65% with normal left ventricular wall motion. HOMER AGUAYO MD DR: ELVIRA/angelica JOB#: [id number] / [id number]
== END 2018-01-01 15:55 | DRG 872 ==
LOC: ER 11:24 → ICU 14:30 → 1 SOUTH 12-31 06:30
PROVIDERS: ADMIT Family Medicine; ATTEND Family Medicine
DX: A41.9 Sepsis, unspecified organism (principal); N39.0 Urinary tract infection, site not specified; E44.0 Moderate protein-calorie malnutrition; E86.0 Dehydration; M41.9 Scoliosis, unspecified; R29.810 Facial weakness; W18.39XA Other fall on same level, initial encounter; E78.00 Pure hypercholesterolemia, unspecified; M81.0 Age-related osteoporosis without current pathological fracture; M47.9 Spondylosis, unspecified; I25.10 Atherosclerotic heart disease of native coronary artery without angina pectoris; Z86.73 Personal history of transient ischemic attack (TIA), and cerebral infarction without residual deficits; Z87.440 Personal history of urinary (tract) infections; Y93.89 Activity, other specified; Y92.098 Other place in other non-institutional residence as the place of occurrence of the external cause; Y99.8 Other external cause status; Z88.6 Allergy status to analgesic agent; Z88.1 Allergy status to other antibiotic agents; Z88.0 Allergy status to penicillin; Z88.2 Allergy status to sulfonamides; Z88.8 Allergy status to other drugs, medicaments and biological substances; Z68.23 Body mass index [BMI] 23.0-23.9, adult
CPT/HCPCS: 36415; 51702; 70450; 71045; 71275; 72125; 74176; 80048; 80076; 80170; 81001; 82550; 84484; 85007; 85025; 85379; 85610; 85730; 87086; 87186; 87641; 93005; 93306; 93971; 96361; 96365; J1580; J3490; Q9967; 99291-25; J7030

== ENCOUNTER 2018-12-06 17:06 | Emergency (ER) | payer MEDICARE, BC ==
[~2018-12-06] VITALS: Ht 167.6 cm; Wt 65.0 kg
[2018-12-06] MEDS ORDERED: IV NORMAL SALINE 1,000ML 1,000 ML IV ONE (17:30)
[2018-12-06] MEDS ORDERED: IOHEXOL 240 MG/ML 50ML VIAL. PO ONE (18:00)
[2018-12-06] MEDS ORDERED: IOHEXOL 300 MG/ML 75 ML VIAL. IV ONE (18:00)
[2018-12-06] MEDS ORDERED: ONDANSETRON PF 4 MG/2 ML VIAL. IV ONE ×2 (18:00→21:00)
[2018-12-06] MEDS ORDERED: FAMOTIDINE 20 MG/2 ML VIAL IVP ONE (18:00)
--- NOTE | 2018-12-06 18:02 | PHYS DOC ---
Past History Past Medical History: Arthritis, CAD, High Cholesterol, UTI (GABY STEPHENS DO) Past Surgical History: Pacemaker, Other (GABY STEPHENS DO) Alcohol Use: None Drug Use: None (GABY STEPHENS DO) Adult General Chief Complaint Chief Complaint: ABDOMINAL PAIN HPI HPI Patient is an 88 year old female presents with one-week of worsening abdominal pain nausea and vomiting. She was diagnosed [address] Aguayo with a kidney infection and was started on antibiotics. She feels her pain is getting worse and describes it as a sharp constant pain in her mid epigastrium. She reports pain with inspiration. Last bowel movement was this morning and was not loose. She denies any reflux symptoms. She also denies any fever or chills or chest pain. She admits to increased frequency and urgency but denies any pain with urination. Patient's main concern at this time is her weakness which she describes as abnormal for her. Denies trauma. Denies headache. (GABY STEPHENS DO) Review of Systems Review of Systems Constitutional: Denies fever or chills [] Eyes: Denies change in visual acuity, redness, or eye pain [] HENT: Denies nasal congestion or sore throat [] Respiratory: mild cough. Intermittent SOB due to the abdominal pain. Cardiovascular: no chest pain or palpitations. GI: Reports abdominal pain, nausea, vomiting. No bloody stools or diarrhea [] : Increased frequency and urgency. Denies dysuria or hematuria [] Integument: Denies rash or skin lesions [] Neurologic: Global weakness of extremities. No focal deficits. Complete systems were reviewed and found to be within normal limits, except as documented in this note. (GABY STEPHENS DO) Current Medications Current Medications Current Medications Medications (Trade) Dose Ordered Sig/Keiry Start Time Stop Time Status Last Admin Dose Admin Famotidine (Pepcid Vial) 20 mg 1X ONCE 12/06/18 18:00 12/06/18 18:01 UNV Fentanyl Citrate (Fentanyl 2ml Vial) 25 mcg 1X ONCE 12/06/18 18:00 12/06/18 18:01 UNV Ondansetron HCl (Zofran) 4 mg 1X ONCE 12/06/18 18:00 12/06/18 18:01 UNV Sodium Chloride 1,000 ml @ 1,000 mls/hr 1X ONCE 12/06/18 17:30 12/06/18 18:29 (GABY STEPHENS DO) Allergies Allergies Allergies Coded Allergies Type Severity Reaction Last Updated Verified Sulfa (Sulfonamide Antibiotics) Allergy Intermediate 12/06/18 Yes aspirin Allergy Intermediate 12/06/18 Yes carvedilol Allergy Intermediate 12/06/18 Yes cefdinir Allergy Intermediate 12/06/18 Yes ciprofloxacin Allergy Intermediate 12/06/18 Yes clarithromycin Allergy Intermediate 12/06/18 Yes codeine Allergy Intermediate 12/06/18 Yes eprosartan Allergy Intermediate 12/06/18 Yes etodolac Allergy Intermediate 12/06/18 Yes guaifenesin Allergy Intermediate 12/06/18 Yes levallorphan Allergy Intermediate 12/06/18 Yes meloxicam Allergy Intermediate 12/06/18 Yes methocarbamol Allergy Intermediate 12/06/18 Yes oxaprozin Allergy Intermediate 12/06/18 Yes penicillin G Allergy Intermediate 12/06/18 Yes quinine Allergy Intermediate 12/06/18 Yes ropinirole Allergy Intermediate 12/06/18 Yes sotalol Allergy Intermediate 12/06/18 Yes tetracycline Allergy Intermediate 12/06/18 Yes egg Allergy Mild 12/06/18 Yes (GABY STEPHENS DO) Physical Exam Physical Exam Constitutional: Mildly confused, but pleasant 88 yo female. no acute distress, non-toxic appearance. [] HENT: Normocephalic, atraumatic, oropharynx moist Eyes: EOMI not intact, conjunctiva normal, no discharge. [] Neck: Normal range of motion, no tenderness, supple, no meningeal signs Cardiovascular: Heart rate regular rhythm, no murmur [] Lungs & Thorax: Bilateral breath sounds clear to auscultation [] Abdomen: Soft, Diffuse tenderness, worst at mid-epigastrium Skin: Warm, dry, no erythema, no rash. [] Extremities: No tenderness, ROM intact, mild +1 edema in LE's b/l. [] Neurologic: Alert and oriented X 3, normal motor function, normal sensory function, no focal deficits noted. [] (GABY STEPHENS DO) Current Patient Data Vital Signs Vital Signs Date Time Temp Pulse Resp B/P (MAP) Pulse Ox O2 Delivery O2 Flow Rate FiO2 12/06/18 17:21 98.3 75 18 97 Room Air (GABY STEPHENS DO) EKG EKG @1800 sinus rhythm at 75bpm, LBBB, NO ST elevation, compared to prior EKG per [facility] review from 12/29/17, ST elevation in V4-V6 on new EKG are a change from prior. Sgarbossa criteria not met. (GABY STEPHENS DO) Radiology/Procedures Radiology/Procedures [] (GABY STEPHENS DO) Course & Med Decision Making Course & Med Decision Making Ms. Kauffman is an 88 yo female who presents with 1 week of increasing abdominal pain and weakness. Pt reports being diagnosed with a kidney infection by Dr. Aguayo [address] Scan with oral contrast ordered to evaluate for intra- abdominal pathologic process. Pain medication and nausea medication ordered. IV fluid resuscitation given. Pain addressed. Labs obtained and pending. CT abd/pelvis also pending at this time. 1800- Sign out given to Dr. Berrios for further evaluation and final disposition. Discussed finding and plan with patient and family, who acknowledge understanding and agreement. (GABY STEPHENS DO) Course & Med Decision Making CT findings suggestive small bowel obstruction. Case discussed with Dr. Aguayo. Recommendations are to transfer the patient to hospital with GI and general surgery coverage, accepted at [facility] (ANJEL BERRIOS DO) Dragon Disclaimer Dragon Disclaimer This electronic medical record was generated, in whole or in part, using a voice recognition dictation system. (GABY STEPHENS DO) Departure Departure: Impression: Primary Impression: Abdominal pain Additional Impression: Bowel obstruction Disposition: XFER SHT-TRM HOSP Condition: IMPROVED Referrals: HOMER AGUAYO MD (PCP) Problem Qualifiers Primary Impression: Abdominal pain Abdominal location: generalized Qualified Codes: R10.84 - Generalized abdominal pain GABY STEPHENS DO December 06, 2018 18:02 ANJEL BERRIOS DO December 06, 2018 22:11
[2018-12-06 18:04] LABS: BASO # 0.1 x10^3/uL (0.0-0.2); BASO % 1 % (0-3); EOS # 0.1 x10^3/uL (0.0-0.7); EOS % 1 % (0-3); HEMATOCRIT 40.3 % (36.0-47.0); HEMOGLOBIN 13.1 g/dL (12.0-15.5); LYMPH # 0.5 x10^3/uL (1.0-4.8); LYMPH % 4 % (24-48); MEAN CORPUSCULAR HEMOGLOBIN 28 pg (25-35); MEAN CORPUSCULAR HGB CONC 33 g/dL (31-37); MEAN CORPUSCULAR VOLUME 86 fL (79-100); MONO % 9 % (0-9); NEUT # 9.5 x10^3uL (1.8-7.7); NEUT % 86 % (31-73); PLATELET COUNT 370 x10^3/uL (140-400); RED BLOOD COUNT 4.67 x10^6/uL (3.50-5.40); RED CELL DISTRIBUTION WIDTH 14.8 % (11.5-14.5); WHITE BLOOD COUNT 11.2 x10^3/uL (4.0-11.0)
--- NOTE | 2018-12-06 18:21 | EKG ---
[address] [address] Test Date: 2018-12-06 Test Time: 18:00:42 Pat Name: BETTY BLOOM Department: Room: Gender: F [employer] Supervisor: : 1930 Requested By: GABY STEPHENS Order Number: [id number] Reading MD: Manuel Myers MD Measurements Intervals [place] Rate: 75 P: -13 [place]: 176 QRS: -66 QRSD: 186 T: 109 QT: 460 QTc: 517 Interpretive Statements SINUS RHYTHM ATRIAL PREMATURE COMPLEX(ES) V-PACING Electronically Signed On 12-10-2018 14:05:44 CDT by Manuel Myers MD
[2018-12-06 18:27] LABS: BACTERIA,URINE FEW /HPF (0-FEW); BILIRUBIN,URINE NEG (NEG); CLARITY,URINE HAZY; COLOR,URINE YELLOW; GLUCOSE,URINE NEG (NEG); NITRITE,URINE NEG (NEG); RBC,URINE OCC /HPF (0-2); SQUAMOUS EPITHELIAL CELL,UR MOD /LPF; UROBILINOGEN,URINE 0.2 mg/dL (0.2 mg/dL)
[2018-12-06 18:30] LABS: ALBUMIN 3.2 g/dL (3.4-5.0); ALBUMIN/GLOBULIN RATIO 0.9 (1.0-1.7); CALCIUM 9.3 mg/dL (8.5-10.1); GFR 52.6; POTASSIUM 3.5 mmol/L (3.5-5.1); TOTAL BILIRUBIN 0.5 mg/dL (0.2-1.0); TOTAL PROTEIN 6.7 g/dL (6.4-8.2)
--- NOTE | 2018-12-06 19:31 | RAD ---
CT ABD PELV W/ORAL IV CONTRAST Indication: Abdominal pain, nausea and vomiting for 5 days. Hysterectomy. Exposure: One or more of the following individualized dose reduction techniques were utilized for this examination: 1. Automated exposure control 2. Adjustment of the mA and/or kV according to patient size 3. Use of iterative reconstruction technique. Technique: Intravenous contrast was given. Oral contrast was given. Urgent interpretation and reporting requested. Mild atelectasis/infiltrate in the left lung base. Heart size is enlarged. Small hypodense lesion at the upper right lobe of the liver, probably a cyst. Mild intrahepatic biliary ductal dilatation. Spleen unremarkable. The pancreas appears small and atrophic without definite inflammatory type changes. No evidence of adrenal mass. The kidneys demonstrate symmetric enhancement. Lesion at the lower pole of the right kidney measures 10 Hounsfield units, compatible with a small cyst. Lesion at the lower pole of the left kidney measures 14 Hounsfield units compatible with a small cyst. No evidence of hydronephrosis. There appear to be some gallstones. No gross gallbladder distention. Aorta calcified and tortuous, no evidence of aneurysm. No significant retroperitoneal or inguinal lymph node enlargement. Moderate hiatal hernia. There is abnormal small bowel distention with fluid and gas involving the distal small bowel. There is also mild wall thickening of these loops. This extends through the terminal ileum. The cecum demonstrates wall thickening but that could be due to lack of distention at least in part. Appendix not seen. There are mildly enlarged right lower quadrant mesenteric lymph nodes, measuring up to 1 cm in short axis. The colon is relatively decompressed with diverticulosis. There is no evidence of pneumoperitoneum or ascites. There is diffuse stranding of the mesenteric fat. Limited visualization of the pelvis and urinary bladder due to metal artifact from left hip replacement. There is severe degenerative changes of the spine with a thoracolumbar scoliosis. Posttraumatic and internal fixation at the left hip. IMPRESSION: 1. Abnormal distention and wall thickening of mid to distal small bowel loops through the terminal ileum. Findings are compatible with obstruction and/or enteritis. There is some wall thickening at the cecum, could be inflammatory or due to a cecal mass. 2. Mild atelectasis/infiltrate in the lung bases. 3. Cholelithiasis. 4. Renal lesions, compatible with cysts. 5. Mildly enlarged nonspecific right lower quadrant mesenteric lymph nodes, may be reactive or inflammatory. Electronically signed by: Carlos Anderson MD (12/06/2018 7:28 PM) [facility]
[2018-12-06 20:50] VITALS: BP 186/81
== END 2018-12-06 22:04 | disposition short-term general hospital (02) ==
LOC: ER 17:06
DX: K56.699 Other intestinal obstruction unspecified as to partial versus complete obstruction (principal); M19.90 Unspecified osteoarthritis, unspecified site; I25.10 Atherosclerotic heart disease of native coronary artery without angina pectoris; E78.00 Pure hypercholesterolemia, unspecified; Z87.440 Personal history of urinary (tract) infections; Z95.0 Presence of cardiac pacemaker; Z88.2 Allergy status to sulfonamides; Z88.6 Allergy status to analgesic agent; Z88.1 Allergy status to other antibiotic agents; Z88.8 Allergy status to other drugs, medicaments and biological substances; Z91.012 Allergy to eggs
CPT/HCPCS: 36415; 74177; 80053; 81001; 82553; 83605; 83690; 84484; 85025; 85610; 85730; 93005; 96361; 96374; 96375; 96376; 99285; J2405; J3010; J3490; Q9966; Q9967; J7030

== ENCOUNTER 2019-02-18 11:05 | Emergency (ER) | payer MEDICARE, BC ==
[~2019-02-18] VITALS: Ht 167.6 cm; Wt 54.1 kg
[2019-02-18 11:56] LABS: BASO % 0 % (0-3); EOS % 0 % (0-3); HEMOGLOBIN 12.5 g/dL (12.0-15.5); LYMPH # 0.6 x10^3/uL (1.0-4.8); LYMPH % 5 % (24-48); MEAN CORPUSCULAR HEMOGLOBIN 28 pg (25-35); MEAN CORPUSCULAR HGB CONC 32 g/dL (31-37); MEAN CORPUSCULAR VOLUME 89 fL (79-100); MONO # 1.1 x10^3/uL (0.0-1.1); MONO % 10 % (0-9); NEUT # 9.6 x10^3uL (1.8-7.7); NEUT % 85 % (31-73); PLATELET COUNT 285 x10^3/uL (140-400); RED CELL DISTRIBUTION WIDTH 15.3 % (11.5-14.5); WHITE BLOOD COUNT 11.4 x10^3/uL (4.0-11.0)
--- NOTE | 2019-02-18 12:00 | RAD ---
PORTABLE CHEST 1V Clinical Indication: Generalized weakness and falls. Comparison: AP chest December 29, 2017. Findings: Atherosclerotic and tortuous thoracic aorta. Stable cardiomegaly. Calcified right paratracheal lymph node. Lungs are clear. There is no pneumothorax. No pleural effusion is appreciated. Unchanged moderate S shaped thoracolumbar scoliosis. IMPRESSION: No acute cardiopulmonary process. Electronically signed by: Adolfo Meyer MD (02/18/2019 11:57 AM) [id number]
--- NOTE | 2019-02-18 12:02 | RAD ---
ANKLE LEFT 3V Clinical Indication: Left ankle pain and swelling, fall. Comparison: None. Findings: No acute fracture. Ankle mortise is intact. Marrow is heterogeneous. There is subcutaneous edema. Mild medial ankle soft tissue swelling. IMPRESSION: No acute fracture. Electronically signed by: Adolfo Meyer MD (02/18/2019 11:59 AM) [id number]
[2019-02-18 12:14] LABS: ALBUMIN 3.6 g/dL (3.4-5.0); ALBUMIN/GLOBULIN RATIO 1.1 (1.0-1.7); CALCIUM 10.1 mg/dL (8.5-10.1); CREATININE 1.2 mg/dL (0.6-1.0); GFR 42.6; MAGNESIUM 2.1 mg/dL (1.8-2.4); POTASSIUM 4.2 mmol/L (3.5-5.1); TOTAL BILIRUBIN 0.4 mg/dL (0.2-1.0); TOTAL PROTEIN 6.8 g/dL (6.4-8.2)
[2019-02-18 12:22] VITALS: BP 118/64
[2019-02-18 12:38] LABS: BILIRUBIN,URINE NEG (NEG); CLARITY,URINE CLOUDY; COLOR,URINE YELLOW; GLUCOSE,URINE NEG (NEG)
[2019-02-18 12:39] LABS: BACTERIA,URINE MOD /HPF (0-FEW); GRANULAR CASTS,URINE OCC /HPF; HYALINE CASTS, URINE FEW /HPF; NITRITE,URINE NEG (NEG); SQUAMOUS EPITHELIAL CELL,UR MANY /LPF; UROBILINOGEN,URINE 0.2 mg/dL (0.2 mg/dL)
--- NOTE | 2019-02-18 13:10 | PHYS DOC ---
Past History Past Medical History: Arthritis, CAD, High Cholesterol, Hypertension, Kidney Infection, UTI Past Surgical History: Pacemaker, Other Alcohol Use: None Drug Use: None Adult General Chief Complaint Chief Complaint: MECHANICAL FALL HPI HPI Patient is a 88 year old female who bought in by EMS because of falls. Patient states she had colonoscopy about 1 month ago and since then has had generalized weakness and doesn't feel good. Patient states she had a fall 2 days ago and another fall today and complaining of pain in left ankle. Patient denies loss of consciousness and head injury, chest pain, palpitation, fever and chills, focal neuro deficit, urinary symptom. Patient states she lives by herself and her daughter checking on her. Patient states she was not able to get up after her fall today and her son called 911. Review of Systems Review of Systems Constitutional: Denies fever or chills [] Eyes: Denies change in visual acuity, redness, or eye pain [] HENT: Denies nasal congestion or sore throat [] Respiratory: Denies cough or shortness of breath [] Cardiovascular: No additional information not addressed in HPI [] GI: Denies abdominal pain, nausea, vomiting, bloody stools or diarrhea [] : Denies dysuria or hematuria [] Musculoskeletal: Denies back pain, reports joint pain [] Integument: Denies rash or skin lesions [] Neurologic: Denies headache, focal weakness or sensory changes [] Endocrine: Denies polyuria or polydipsia [] All other systems were reviewed and found to be within normal limits, except as documented in this note. Allergies Allergies Allergies Coded Allergies Type Severity Reaction Last Updated Verified Sulfa (Sulfonamide Antibiotics) Allergy Intermediate 12/06/18 Yes aspirin Allergy Intermediate 12/06/18 Yes carvedilol Allergy Intermediate 12/06/18 Yes cefdinir Allergy Intermediate 12/06/18 Yes ciprofloxacin Allergy Intermediate 12/06/18 Yes clarithromycin Allergy Intermediate 12/06/18 Yes codeine Allergy Intermediate 12/06/18 Yes eprosartan Allergy Intermediate 12/06/18 Yes etodolac Allergy Intermediate 12/06/18 Yes guaifenesin Allergy Intermediate 12/06/18 Yes levallorphan Allergy Intermediate 12/06/18 Yes meloxicam Allergy Intermediate 12/06/18 Yes methocarbamol Allergy Intermediate 12/06/18 Yes oxaprozin Allergy Intermediate 12/06/18 Yes penicillin G Allergy Intermediate 12/06/18 Yes quinine Allergy Intermediate 12/06/18 Yes ropinirole Allergy Intermediate 12/06/18 Yes sotalol Allergy Intermediate 12/06/18 Yes tetracycline Allergy Intermediate 12/06/18 Yes egg Allergy Mild 12/06/18 Yes Physical Exam Physical Exam Constitutional: Well developed, well nourished, mild distress, non-toxic appearance. [] HENT: Normocephalic, atraumatic, bilateral external ears normal, oropharynx moist, no oral exudates, nose normal. [] Eyes: PERRLA, EOMI, conjunctiva normal, no discharge. [] Neck: Normal range of motion, no tenderness, supple, no stridor. [] Cardiovascular:Heart rate regular rhythm, no murmur [] Lungs & Thorax: Bilateral breath sounds clear to auscultation [] Abdomen: Bowel sounds normal, soft, no tenderness, no masses, no pulsatile masses. [] Skin: Warm, dry, no erythema, no rash. [] Back: No tenderness, no CVA tenderness. [] Extremities: Left ankle without deformity or sign of injury, mild tenderness in lateral and medial malleolus, no cyanosis, no clubbing, ROM intact, no edema. [] Neurologic: Alert and oriented X 3, normal motor function, normal sensory function, no focal deficits noted. [] Psychologic: Affect normal, judgement normal, mood normal. [] Current Patient Data Vital Signs Vital Signs Date Time Temp Pulse Resp B/P (MAP) Pulse Ox O2 Delivery O2 Flow Rate FiO2 02/18/19 12:22 88 18 118/64 (82) 98 Room Air 02/18/19 11:16 98.0 Lab Results Laboratory Tests Test 02/18/19 11:40 02/18/19 12:15 White Blood Count 11.4 x10^3/uL (4.0-11.0) H Red Blood Count 4.40 x10^6/uL (3.50-5.40) Hemoglobin 12.5 g/dL (12.0-15.5) Hematocrit 39.0 % (36.0-47.0) Mean Corpuscular Volume 89 fL (79-100) Mean Corpuscular Hemoglobin 28 pg (25-35) Mean Corpuscular Hemoglobin Concent 32 g/dL (31-37) Red Cell Distribution Width 15.3 % (11.5-14.5) H Platelet Count 285 x10^3/uL (140-400) Neutrophils (%) (Auto) 85 % (31-73) H Lymphocytes (%) (Auto) 5 % (24-48) L Monocytes (%) (Auto) 10 % (0-9) H Eosinophils (%) (Auto) 0 % (0-3) Basophils (%) (Auto) 0 % (0-3) Neutrophils # (Auto) 9.6 x10^3uL (1.8-7.7) H Lymphocytes # (Auto) 0.6 x10^3/uL (1.0-4.8) L Monocytes # (Auto) 1.1 x10^3/uL (0.0-1.1) Eosinophils # (Auto) 0.0 x10^3/uL (0.0-0.7) Basophils # (Auto) 0.0 x10^3/uL (0.0-0.2) Prothrombin Time 10.9 SEC (9.4-11.4) Prothrombin Time INR 1.1 (0.9-1.1) Sodium Level 141 mmol/L (136-145) Potassium Level 4.2 mmol/L (3.5-5.1) Chloride Level 106 mmol/L (98-107) Carbon Dioxide Level 28 mmol/L (21-32) Anion Gap 7 (6-14) Blood Urea Nitrogen 27 mg/dL (7-20) H Creatinine 1.2 mg/dL (0.6-1.0) H Estimated GFR (Cockcroft-Gault) 42.6 BUN/Creatinine Ratio 23 (6-20) H Glucose Level 100 mg/dL (70-99) H Lactic Acid Level 1.6 mmol/L (0.4-2.0) Calcium Level 10.1 mg/dL (8.5-10.1) Magnesium Level 2.1 mg/dL (1.8-2.4) Total Bilirubin 0.4 mg/dL (0.2-1.0) Aspartate Amino Transferase (AST) 19 U/L (15-37) Alanine Aminotransferase (ALT) 19 U/L (14-59) Alkaline Phosphatase 51 U/L (46-116) Creatine Kinase 124 U/L (26-192) Troponin I Quantitative 0.017 ng/mL (0-0.055) EI-Etu-L-Type Natriuretic Peptide 1732 pg/mL (0-449) H Total Protein 6.8 g/dL (6.4-8.2) Albumin 3.6 g/dL (3.4-5.0) Albumin/Globulin Ratio 1.1 (1.0-1.7) Urine Collection Type Unknown Urine Color Yellow Urine Clarity Cloudy Urine pH 6.0 Urine Specific [place] 1.015 Urine Protein 30 mg/dl (NEG-TRACE) Urine Glucose (UA) Neg mg/dL (NEG) Urine Ketones (Stick) Neg mg/dL (NEG) Urine Blood Neg (NEG) Urine Nitrite Neg (NEG) Urine Bilirubin Neg (NEG) Urine Urobilinogen Dipstick 0.2 mg/dL (0.2 mg/dL) Urine Leukocyte Esterase Neg (NEG) Urine RBC 1-2 /HPF (0-2) Urine WBC 1-4 /HPF (0-4) Urine Squamous Epithelial Cells Many /LPF Urine Bacteria Mod /HPF (0-FEW) Urine Hyaline Casts Few /HPF Urine Granular Casts Occ /HPF Urine Mucus Slight /LPF EKG EKG EKG interpreted by me. EKG at 1157 showed sinus rhythm at rate of 75, abnormal left axis deviation, nonspecific intraventricular block, RVH, Q wave in anterior leads and inferior leads. No acute T-wave abnormalities, unchanged EKG when compared to previous one. Radiology/Procedures Radiology/Procedures [address] [address] IMAGING REPORT Signed PATIENT: BETTY BLOOM ACCOUNT: [id number] : 1930 LOCATION: ER AGE: 88 SEX: F EXAM STATUS: REG ER ORD. PHYSICIAN: BRANDON RAI MD REASON: LEFT ANKLE PAIN AND SWELLING, FALL PROCEDURE: ANKLE LEFT 3V ANKLE LEFT 3V Clinical Indication: Left ankle pain and swelling, fall. Comparison: None. Findings: No acute fracture. Ankle mortise is intact. Marrow is heterogeneous. There is subcutaneous edema. Mild medial ankle soft tissue swelling. IMPRESSION: No acute fracture. Electronically signed by: Adolfo Meyer MD (02/18/2019 11:59 AM) [id number] DICTATED AND SIGNED BY: ADOLFO MEYER MD DATE: 02/18/19 3536 CC: HOMER AGUAYO MD; BRANDON RAI MD ~ [place] [address] IMAGING REPORT Signed PATIENT: BETTY BLOOM ACCOUNT: [id number] : 1930 LOCATION: ER AGE: 88 SEX: F EXAM STATUS: REG ER ORD. PHYSICIAN: BRANDON RAI MD REASON: generalized weakness and falls PROCEDURE: PORTABLE CHEST 1V PORTABLE CHEST 1V Clinical Indication: Generalized weakness and falls. Comparison: AP chest December 29, 2017. Findings: Atherosclerotic and tortuous thoracic aorta. Stable cardiomegaly. Calcified right paratracheal lymph node. Lungs are clear. There is no pneumothorax. No pleural effusion is appreciated. Unchanged moderate S shaped thoracolumbar scoliosis. IMPRESSION: No acute cardiopulmonary process. Electronically signed by: Adolfo Meyer MD (02/18/2019 11:57 AM) [id number] DICTATED AND SIGNED BY: ADOLFO MEYER MD DATE: 02/18/19 1153 CC: HOMER AGUAYO MD; BRANDON RAI MD ~ Course & Med Decision Making Course & Med Decision Making Pertinent Labs and Imaging studies reviewed. (See chart for details) Evaluation of patient in ER showed 88-year-old female patient brought in by EMS because of generalized weakness for more than one month and frequent falls and injury to left ankle. Patient had unremarkable physical exam and labs and remarkable x-ray of ankle. Patient ambulated without problem like her usual c ondition and wants to go home. Dragon Disclaimer Dragon Disclaimer This electronic medical record was generated, in whole or in part, using a voice recognition dictation system. Departure Departure: Impression: Primary Impression: Weakness generalized Additional Impressions: Falls Ankle sprain Chronic renal insufficiency Disposition: HOME, SELF-CARE (at 1307) Condition: IMPROVED Referrals: HOMER AGUAYO MD (PCP) Patient Instructions: Ankle Sprain, Fall Prevention and Home Safety, Weakness Additional Instructions: Take [id number] Tylenol as needed for pain Follow-up with your primary care physician in 3-5 days Return to ER if not getting better Problem Qualifiers Additional Impressions: Falls Encounter type: initial encounter Qualified Codes: W19.XXXA - Unspecified fall, initial encounter Ankle sprain Encounter type: subsequent encounter Involved ligament of ankle: un specified ligament Laterality: left Qualified Codes: S93.402D - Sprain of unspecified ligament of left ankle, subsequent encounter Chronic renal insufficiency Chronic kidney disease stage: unspecified stage Qualified Codes: N18.9 - Chronic kidney disease, unspecified BRANDON RAI MD Feb 18, 2019 13:10
--- NOTE | 2019-02-20 11:08 | EKG ---
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
== END 2019-02-18 13:45 | disposition home or self-care (01) ==
LOC: ER 11:05
DX: S93.402A Sprain of unspecified ligament of left ankle, initial encounter (principal); R53.1 Weakness; I12.9 Hypertensive chronic kidney disease with stage 1 through stage 4 chronic kidney disease, or unspecified chronic kidney disease; N18.9 Chronic kidney disease, unspecified; M19.90 Unspecified osteoarthritis, unspecified site; I25.10 Atherosclerotic heart disease of native coronary artery without angina pectoris; E78.00 Pure hypercholesterolemia, unspecified; Z87.440 Personal history of urinary (tract) infections; Z95.0 Presence of cardiac pacemaker; R29.6 Repeated falls; Z88.2 Allergy status to sulfonamides; Z88.6 Allergy status to analgesic agent; Z88.1 Allergy status to other antibiotic agents; Z88.0 Allergy status to penicillin; Z88.8 Allergy status to other drugs, medicaments and biological substances; Z91.012 Allergy to eggs; W18.39XA Other fall on same level, initial encounter; Y93.89 Activity, other specified; Y92.89 Other specified places as the place of occurrence of the external cause; Y99.8 Other external cause status
CPT/HCPCS: 36415; 71045; 73610; 80053; 81001; 82550; 83605; 83735; 83880; 84484; 85025; 85610; 87086; 93005; 99285

== ENCOUNTER 2019-08-13 15:34 | Inpatient (IN) | payer MEDICARE, BC ==
[~2019-08-13] VITALS: Ht 157.5 cm; Wt 57.9 kg
[~2019-08-13 15:34] MED LIST changes: +ACET325T9 PO; +LACT1CAP19 PO
[2019-08-13] MEDS ORDERED: IV NORMAL SALINE 500ML 500 ML IV ONE (15:45)
--- NOTE | 2019-08-13 16:00 | PHYS DOC ---
Past History Past Medical History: Arthritis, CAD, High Cholesterol, Hypertension, Kidney Infection, UTI Past Surgical History: Pacemaker, Other Alcohol Use: None Drug Use: None Adult General Chief Complaint Chief Complaint: WEAKNESS/GENERALIZED HPI HPI 89-year-old female presents via EMS with generalized weakness. The patient has fallen a few times last couple of days. He had not fallen today, but was feeling too weak to get up and go to the other room. She is afraid she might fall if she tried to do this so she pushed her medical button. She denies fever, chills, cough. She's been feeling okay except for the weakness. She feels like her right leg is more weak than the others but she knows this leg has arthritis more than the left. Review of Systems Review of Systems Constitutional: Weakness. Denies fever or chills [] Eyes: Denies change in visual acuity, redness, or eye pain [] HENT: Denies nasal congestion or sore throat [] Respiratory: Denies cough or shortness of breath [] Cardiovascular: No additional information not addressed in HPI [] GI: Denies abdominal pain, nausea, vomiting, bloody stools or diarrhea [] : Denies dysuria or hematuria [] Musculoskeletal: Denies back pain or joint pain [] Integument: Denies rash or skin lesions [] Neurologic: Denies headache, focal weakness or sensory changes [] Endocrine: Denies polyuria or polydipsia [] All other systems were reviewed and found to be within normal limits, except as documented in this note. Current Medications Current Medications Current Medications Medications (Trade) Dose Ordered Sig/Keiry Start Time Stop Time Status Last Admin Dose Admin Sodium Chloride 500 ml @ 0 mls/hr 1X ONCE 08/13/19 15:45 08/13/19 15:46 DC Allergies Allergies Allergies Coded Allergies Type Severity Reaction Last Updated Verified Sulfa (Sulfonamide Antibiotics) Allergy Intermediate 12/06/18 Yes aspirin Allergy Intermediate 12/06/18 Yes carvedilol Allergy Intermediate 12/06/18 Yes cefdinir Allergy Intermediate 12/06/18 Yes ciprofloxacin Allergy Intermediate 12/06/18 Yes clarithromycin Allergy Intermediate 12/06/18 Yes codeine Allergy Intermediate 12/06/18 Yes eprosartan Allergy Intermediate 12/06/18 Yes etodolac Allergy Intermediate 12/06/18 Yes guaifenesin Allergy Intermediate 12/06/18 Yes levallorphan Allergy Intermediate 12/06/18 Yes meloxicam Allergy Intermediate 12/06/18 Yes methocarbamol Allergy Intermediate 12/06/18 Yes oxaprozin Allergy Intermediate 12/06/18 Yes penicillin G Allergy Intermediate 12/06/18 Yes quinine Allergy Intermediate 12/06/18 Yes ropinirole Allergy Intermediate 12/06/18 Yes sotalol Allergy Intermediate 12/06/18 Yes tetracycline Allergy Intermediate 12/06/18 Yes egg Allergy Mild 12/06/18 Yes Physical Exam Physical Exam Constitutional: Well developed, well nourished, no acute distress, non-toxic appearance. [] HENT: Normocephalic, atraumatic, bilateral external ears normal, oropharynx moist, no oral exudates, nose normal. [] Eyes: PERRLA, EOMI, conjunctiva normal, no discharge. [] Neck: Normal range of motion, no tenderness, supple, no stridor. [] Cardiovascular:Heart rate regular rhythm, no murmur [] Lungs & Thorax: Bilateral breath sounds clear to auscultation [] Abdomen: Bowel sounds normal, soft, no tenderness, no masses, no pulsatile masses. [] Skin: Warm, dry, no erythema, no rash. [] Back: No tenderness, no CVA tenderness. [] Extremities: No tenderness, no cyanosis, no clubbing, ROM intact, no edema. Bilateral lower extremity strength 4 out of 5 and symmetrical[] Neurologic: Alert and oriented X 3, normal motor function, normal sensory function, no focal deficits noted. [] Psychologic: Affect normal, judgement normal, mood normal. [] EKG EKG Likely paced rhythm, rate 64, Q waves in 2, 3, aVF, similar to previous 02/18/19.[] Radiology/Procedures Radiology/Procedures [] Impressions: CT HEAD INDICATION: Falls COMPARISON: 03/03/2019 Exposure: One or more of the following individualized dose reduction techniques were utilized for this examination: 1. Automated exposure control 2. Adjustment of the mA and/or kV according to patient size 3. Use of iterative reconstruction technique TECHNIQUE: 5 mm contiguous axial images were obtained from the skull base to the vertex in both bone and soft tissue algorithm. FINDINGS: No abnormal attenuation within the brain parenchyma. No evidence of acute intracranial hemorrhage. No extra-axial fluid collections. No mass effect or midline shift. Ventricular size is appropriate. Basal cisterns are patent. No fractures identified.Wiley-white differentiation is preserved.Globes and orbits are within normal limits. Paranasal sinuses and mastoid air cells are clear. IMPRESSION: No acute intracranial findings. Electronically signed by: Phu Tam MD (08/13/2019 4:43 PM) [id number] DICTATED AND SIGNED BY: PHU TAM MD DATE: 08/13/19 276 CC: ANJEL MORRISON DO; HOMER AGUAYO MD ~ Course & Med Decision Making Course & Med Decision Making Pertinent Labs and Imaging studies reviewed. (See chart for details) Patient's head CT is negative for acute findings. Her EKG is similar to previous. Labs are unremarkable except for an elevated BUN of 33. He does appear be dehydrated. I ordered an liter normal saline. The patient feels too weak to be at home. I spoke with Dr. Aguayo and he has accepted the patient for admission. [] Dragon Disclaimer Dragon Disclaimer This electronic medical record was generated, in whole or in part, using a voice recognition dictation system. Departure Departure: Impression: Primary Impression: Generalized weakness Additional Impression: Dehydration Disposition: ADMITTED INPATIENT Admitting Physician: Homer Aguayo Condition: STABLE Referrals: HOMER AGUAYO MD (PCP) Problem Qualifiers ANJEL MORRISON DO Aug 13, 2019 16:00
[2019-08-13 16:16] LABS: BASO % 1 % (0-3); EOS # 0.2 x10^3/uL (0.0-0.7); EOS % 3 % (0-3); HEMATOCRIT 41.4 % (36.0-47.0); HEMOGLOBIN 13.7 g/dL (12.0-15.5); LYMPH # 1.1 x10^3/uL (1.0-4.8); LYMPH % 16 % (24-48); MEAN CORPUSCULAR HEMOGLOBIN 30 pg (25-35); MEAN CORPUSCULAR HGB CONC 33 g/dL (31-37); MEAN CORPUSCULAR VOLUME 91 fL (79-100); MONO # 0.8 x10^3/uL (0.0-1.1); MONO % 10 % (0-9); NEUT # 5.2 x10^3uL (1.8-7.7); NEUT % 71 % (31-73); PLATELET COUNT 232 x10^3/uL (140-400); RED BLOOD COUNT 4.56 x10^6/uL (3.50-5.40); RED CELL DISTRIBUTION WIDTH 14.1 % (11.5-14.5); WHITE BLOOD COUNT 7.4 x10^3/uL (4.0-11.0)
[2019-08-13 16:24] LABS: CALCIUM 9.6 mg/dL (8.5-10.1); CREATININE 0.9 mg/dL (0.6-1.0); GFR 59.2; POTASSIUM 4.3 mmol/L (3.5-5.1)
[2019-08-13 16:31] LABS: ALBUMIN 3.7 g/dL (3.4-5.0); ALBUMIN/GLOBULIN RATIO 1.3 (1.0-1.7); TOTAL BILIRUBIN 0.4 mg/dL (0.2-1.0); TOTAL PROTEIN 6.5 g/dL (6.4-8.2)
--- NOTE | 2019-08-13 16:33 | EKG ---
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
--- NOTE | 2019-08-13 16:46 | RAD ---
CT HEAD INDICATION: Falls COMPARISON: 03/03/2019 Exposure: One or more of the following individualized dose reduction techniques were utilized for this examination: 1. Automated exposure control 2. Adjustment of the mA and/or kV according to patient size 3. Use of iterative reconstruction technique TECHNIQUE: 5 mm contiguous axial images were obtained from the skull base to the vertex in both bone and soft tissue algorithm. FINDINGS: No abnormal attenuation within the brain parenchyma. No evidence of acute intracranial hemorrhage. No extra-axial fluid collections. No mass effect or midline shift. Ventricular size is appropriate. Basal cisterns are patent. No fractures identified.Wiley-white differentiation is preserved.Globes and orbits are within normal limits. Paranasal sinuses and mastoid air cells are clear. IMPRESSION: No acute intracranial findings. Electronically signed by: Phu Burkett MD (08/13/2019 4:43 PM) [id number]
[2019-08-13 16:53] LABS: BACTERIA,URINE 0 /HPF (0-FEW); BILIRUBIN,URINE NEG (NEG); CLARITY,URINE HAZY; COLOR,URINE STRAW; GLUCOSE,URINE NEG (NEG); NITRITE,URINE NEG (NEG); RBC,URINE 0 /HPF (0-2); SQUAMOUS EPITHELIAL CELL,UR FEW /LPF; UROBILINOGEN,URINE 0.2 mg/dL (0.2 mg/dL); WBC,URINE 0 /HPF (0-4)
[2019-08-13] MEDS ORDERED: ONDANSETRON PF 4 MG/2 ML VIAL. IV PRN (18:00)
[2019-08-13 18:07] VITALS: BP 193/78
[2019-08-13] MEDS ORDERED: HYDR25TA10 PO (20:17)
[2019-08-13] MEDS ORDERED: LOSA100T14 PO (20:17)
[2019-08-13] MEDS ORDERED: ATOR10TA60 PO (20:17)
--- NOTE | 2019-08-13 20:17 | NUR ---
The patient, BETTY BLOOM, 89 y/o, F admitted by HOMER AGUAYO MD, was given written information regarding hospital policies, unit procedures and contact persons. Valuables were checked and noted. PT transported to unit, arrived and transferred to bed safely. PT oriented to unit. Reviewed with PT her PMH, PSH, SH, FH and medications. PT is unsure of current medications. Daughter will bring by tomorrow. Medications she remembered were added/deleted as appropriate.
[2019-08-13] MEDS ORDERED: ACETAMINOPHEN 325 MG TABLET PO PRN (20:45)
[2019-08-13] MEDS ORDERED: ZOLPIDEM 5 MG TABLET. PO PRN (20:45)
--- NOTE | 2019-08-13 21:55 | RAD ---
AP chest. HISTORY: Short of air AP view was taken of the chest. Lungs are clear. There is thoracolumbar scoliosis. Heart is normal in size. There is no pleural effusion. There is minimal linear scarring or atelectasis on the left without other infiltrates. There is a left pacemaker with atrial and ventricular pacing leads. IMPRESSION: 1. No acute infiltrates. Electronically signed by: Rosales Alexander MD (08/13/2019 9:52 PM) [facility]
[2019-08-13 22:45] VITALS: BP 143/67
[2019-08-13] MEDS: ATORVASTATIN CALCIUM 10 MG TABLET. PO SCH (23:03)
[2019-08-13] MEDS ORDERED: ASPI-630 PO (23:41)
[2019-08-14 06:23] VITALS: BP 145/79
[2019-08-14] MEDS: CHOLECALCIFEROL (VITAMIN D3) 1,000 UNIT TABLET PO SCH (07:36)
[2019-08-14] MEDS: hydroCHLOROthiazide 25 MG TABLET PO SCH (07:37)
--- NOTE | 2019-08-14 08:11 | NUR ---
Patient is alert and oriented x 3-4. Speech is clear, able to make wants and needs known and able to verbalize understanding of others. Cooperative with staff in all cares. No negative moods or behaviors this shift. Patient is stand by assist with transfers. Continent of bowel and bladder this shift. Patient ambulates using walker. Patient requesting to go home this shift. Patient is denying any pain or feeling weak or dizzy. Patient is now resting in chair next to bed with call light and fresh fluids with in reach.
[2019-08-14] MEDS ORDERED: NON FORMULARY ITEM (Losartan Potassium 100 MG) PO SCH (09:00)
--- NOTE | 2019-08-14 10:09 | HP ---
ADMIT DATE: HISTORY OF PRESENT ILLNESS: This is an 89-year-old female who came in through the Emergency Room, apparently was found by relatives with generalized weakness. She had fallen and was too weak to get up off the floor or out of her room. She was afraid she might fall. She pushed her medical alert button and EMS came to the door and brought her into the Emergency Room. She notes her right leg is weak. She does have severe arthritis, generalized severe scoliosis to the back and walks with her right foot inverted in. The patient in turn was seen in the Emergency Room. Initial CT scan did not show any obvious stroke. PAST MEDICAL HISTORY: TIAs, CHF, pacemaker, AV paced, hypercholesterolemia, hypertension, urinary tract infections, incontinence, urinary urgency, arthritis, osteoarthritis, osteoporosis, scoliosis, orthopedic surgery, joint replacement, back pain. IMMUNIZATIONS: Tetanus-diphtheria vaccination. Influenza are up-to-date. ALLERGIES: To SULFA, ASPIRIN, CARVEDILOL, CEPHALEXIN, CIPRO, CLARITHROMYCIN, CODEINE, IRBESARTAN, ETODOLAC, GUAIFENESIN, LEVALLORPHAN, MOBIC, ROBAXIN, DAYPRO, PENICILLIN-G, QUININE, REQUIP, SOTALOL, TETRACYCLINE and EGGS, mild on that latter. SOCIAL HISTORY: The patient denies smoking, alcohol or drug use. FAMILY HISTORY: Noncontributory in any way. The patient otherwise lives at home with herself and a bird, name Dinky. REVIEW OF SYSTEMS: The patient denies any headaches, visual change, blurred vision, double vision. Has previous history of what appears to be a stroke and has some disfigurement to the face and her speech is somewhat off a little bit, but this has been basic and chronic for over sometime. PHYSICAL EXAMINATION: LUNGS: The patient's lungs are diminished, but clear. CARDIOVASCULAR: Irregularly irregular rhythm. ABDOMEN: Soft, nontender, no rebounding or guarding. Positive bowel sounds. No hepatosplenomegaly was noted. EXTREMITIES: Without clubbing, cyanosis, nor edema. NEUROLOGIC: The patient was alert and oriented x 3. The patient has marked scoliosis to her spine with inversion of her foot as indicated when she attempts to walk. She has to use a walker. She is very weak. Orthostatics are pending. LABORATORY DATA: Demonstrated a CBC that was normal. Urine was unremarkable. Chest x-ray unremarkable. IMPRESSION: Generalized weakness, failure to thrive, marked scoliosis, generalized weakness, mild change in mental status. PLAN: The patient will be admitted for further evaluation and treatment and make further assessment on her as indicated per those results. HOMER AGUAYO MD DR: ELVIRA/angelica JOB#: [id number] / [id number]
[2019-08-14 10:11] VITALS: BP 122/70
[2019-08-14 10:23] VITALS: BP 147/88
[2019-08-14 14:40] VITALS: BP 109/68
[2019-08-14 19:18] VITALS: BP 112/67
[2019-08-14] MEDS: ATORVASTATIN CALCIUM 10 MG TABLET. PO SCH (21:11)
[2019-08-14 22:15] VITALS: BP 149/73
[2019-08-15 05:21] VITALS: BP 137/82
[2019-08-15] MEDS: hydroCHLOROthiazide 25 MG TABLET PO SCH (07:59)
[2019-08-15] MEDS: CHOLECALCIFEROL (VITAMIN D3) 1,000 UNIT TABLET PO SCH (07:59)
[2019-08-15] MEDS ORDERED: LOSARTAN 50 MG TABLET. PO SCH (09:00)
[2019-08-15] MEDS ORDERED: TRIAMCINOLONE ACETONIDE 40 MG/ML VIAL. INT ART ONE (09:30)
[2019-08-15] MEDS ORDERED: BUPIVACAINE MPF 0.5% 10 ML VIAL. INT ART ONE (09:30)
--- NOTE | 2019-08-15 09:45 | NUR ---
Pt tolerated injection to R knee well. Stated she felt "better already." Will work with PT/OT today and discharge home if she is able to move around with tolerable pain level.
[2019-08-15 10:47] VITALS: BP 131/72
[2019-08-15] MEDS ORDERED: HYDR-2869 PO (12:38)
--- NOTE | 2019-08-15 12:41 | DISCH ---
HOME HEALTH DISCHARGE/MEDS DISCHARGE INFORMATION: Discharge Date: Aug 15, 2019 Final Diagnosis: Problems Medical Problems: (1) Dehydration Status: Acute (2) Generalized weakness Status: Acute Condition on Discharge: Stable CODE STATUS: Code Status: Full HOME HEALTH: Face to Face: I certify this patient is under my care and that I, or a nurse practitioner or physician's resident care assistant working with me, had a face to face encounter that meets the physician face to face encounter requirements with this patient on [Date]. Medical Condition(s): Falls Group Home For: Assess Cardiopulm Status, Assess & Educate Safety, Assess/Skilled Observatio, Medication Management, Pain Management Physical Therapy For: Evalulation/Treatment Occupational Therapy For: Evaluation/Treatment Homebound Status Met By: Unsteady balance w/ amb, POST DISCHARGE ORDERS: Activity Instructions for Disc: Activity as tolerated DIET AFTER DISCHARGE: Regular CHECKS AFTER DISCHARGE: Checks after discharge: Check blood press - daily CERTIFICATION STATEMENT: Certification Statement: Based on the above finding, I certify that this patient is confined to the home and needs intermittent [facility] care, physical therapy and/or speech therapy, or continues to need occupational therapy.~ This patient is under my care, and I have initiated the establishment of the plan of care.~ This patient will be followed by myself or a community physician who will periodically review the plan of care. DISCHARGE MEDICATIONS: Home Meds Active Scripts Acetaminophen (TYLENOL) 325 Mg Tablet, 650 MG PO PRN Q6HRS PRN for Headaches, Temp > 101.5F for 90 Days, TAB 9 Refills Prov:HOMER AGUAYO MD 03/04/19 Reported Medications Aspirin (ASPIRIN) 81 Mg Tab.chew, 81 MG PO DAILY for preventative, TAB 08/13/19 Losartan Potassium (LOSARTAN POTASSIUM) 100 Mg Tablet, 90 MG PO DAILY for HTN 08/13/19 Atorvastatin Calcium (ATORVASTATIN CALCIUM) 10 Mg Tablet, 10 MG PO HS for HLD 08/13/19 Hydrochlorothiazide (Hydrochlorothiazide) 25 Mg Tablet, 25 MG PO DAILY for HTN 08/13/19 Cholecalciferol (Vitamin D3) (VITAMIN D) 1,000 Unit Capsule, 1000 UNIT PO DAILY for SUPPLEMENT LAST DOSE GIVEN: DATE: TODAY TIME: AM NEXT DOSE DUE: DATE: TOMORROW TIME: AM 07/28/13 Discontinued Reported Medications Valsartan/Hydrochlorothiazide (DIOVAN HCT 160-25 MG TABLET) 1 Each Tablet, 1 EACH PO DAILY for HIGH BLOOD PRESSURE LAST DOSE GIVEN: DATE: TODAY TIME: AM NEXT DOSE DUE: DATE: TOMORROW TIME: AM 09/27/14 Amlodipine/Atorvastatin (CADUET 10 MG-10 MG TABLET) 1 Each Tablet, 1 EACH PO DAILY for HIGH BLOOD PRESSURE LAST DOSE GIVEN: DATE: TODAY TIME: AM NEXT DOSE DUE: DATE: TOMORROW TIME: AM 07/28/13 Aspirin (ASPIR 81) 81 Mg Tablet.dr, 81 MG PO DAILY for PREVENT BLOOD CLOTS LAST DOSE GIVEN: DATE: TODAY TIME: AM NEXT DOSE DUE: DATE: TOMORROW TIME: AM 07/28/13 Loratadine (CLARITIN) 10 Mg Capsule, 10 MG PO DAILY for SEASONAL ALLERGIES LAST DOSE GIVEN: DATE: TODAY TIME: AM NEXT DOSE DUE: DATE: TOMORROW TIME: AM 07/28/13 HOMER AGUAYO MD Aug 15, 2019 12:41
[2019-08-15 14:09] VITALS: BP 131/72
--- NOTE | 2019-08-15 14:22 | NUR ---
Pt discharged home with daughter via wheelchair. VSS. NAD. Discharge instructions and new prescriptions reviewed with daughter and pt. Questions answered. PIV removed without complication. All belongings accounted for. No falls or injuries reported during stay.
--- NOTE | 2019-08-15 19:46 | DS ---
DATE OF DISCHARGE: 08/15/2019 HOSPITAL COURSE: An 89-year-old female who came in with generalized weakness, failure to thrive. The patient had not been eating or drinking very well. She pushed her medical alert button. Apparently, she had fallen, was too weak to get up off the floor, she needed EMS to come and help her. The patient does have severe degenerative arthritis in her extremities as well as marked scoliosis to her back. The patient was admitted for further evaluation and treatment. She was given IV fluids. Her urine was basically clear, although she did have an initial blood pressure 193/78, and was brought down with hydralazine. The patient also had __ procedure note and injection to her right knee for her degenerative arthritis. There were no complications noted during the hospitalization. She made good progress, getting her blood pressure down. IMPRESSION: Hypertensive urgency, severe degenerative arthritis, scoliosis of the lumbar spine. PLAN: The patient was discharged home. She will be on a heart healthy diet, decreased activity. She will have home health follow her. She was ambulatory during the hospitalization. She will follow up in 7-10 days or sooner as needed. She may need to be seen by orthopedic doctor. HOMER AGUAYO MD DR: ELVIRA/angelica JOB#: [id number] / [id number]
--- NOTE | 2019-08-15 21:52 | OP ---
DATE OF SURGERY: 08/15/2019 The patient had severe degenerative arthritis of the right knee. She requested a steroid shot, which she has not had a number of years and says that it usually helps her get along better. The patient's right knee was markedly swollen, hypertrophic consistent with degenerative arthritis, hypertrophy noted. After the patient gave her written consent, told the possible complications and with the RN assistance, the proclamation signed. The patient's knee was betadined in the usual fashion and then injected with a combination of 3 mL of dibucaine and 1 mL of triamcinolone without any complication. The patient tolerated the procedure well. It was injected articularly and the patient made good progress and pain was relieved with the injection. There were no complications. IMPRESSION: Degenerative arthritis of the right knee. PROCEDURE: Injection of the right knee with steroids in the leg. HOMER AGUAYO MD DR: ELVIRA/angelica JOB#: [id number] / [id number]
== END 2019-08-15 14:33 | disposition home health service (06) | DRG 305 ==
LOC: ER 15:34 → 1 SOUTH 17:46
PROVIDERS: ADMIT Family Medicine; ATTEND Family Medicine
PROC: 3E0U33Z Introduction of Anti-inflammatory into Joints, Percutaneous Approach (ICD-10-PCS; principal; 2019-08-15)
PROC: 3E0U3BZ Introduction of Anesthetic Agent into Joints, Percutaneous Approach (ICD-10-PCS; 2019-08-15)
DX: I16.0 Hypertensive urgency (principal); E86.0 Dehydration; M17.11 Unilateral primary osteoarthritis, right knee; R62.7 Adult failure to thrive; E78.00 Pure hypercholesterolemia, unspecified; I11.0 Hypertensive heart disease with heart failure; I25.10 Atherosclerotic heart disease of native coronary artery without angina pectoris; I50.9 Heart failure, unspecified; M41.9 Scoliosis, unspecified; R29.6 Repeated falls; Z86.73 Personal history of transient ischemic attack (TIA), and cerebral infarction without residual deficits; Z87.440 Personal history of urinary (tract) infections; Z68.23 Body mass index [BMI] 23.0-23.9, adult; Z88.2 Allergy status to sulfonamides; Z88.8 Allergy status to other drugs, medicaments and biological substances; Z88.6 Allergy status to analgesic agent; Z88.1 Allergy status to other antibiotic agents; Z91.012 Allergy to eggs
CPT/HCPCS: 36415; 70450; 71045; 80053; 81001; 82607; 83605; 84443; 84484; 85025; 93005; J3301; J7040; 97110; 97535; 99285-25

== ENCOUNTER 2019-10-05 09:37 | Emergency (ER) | payer MEDICARE, BC ==
[~2019-10-05] VITALS: Ht 157.5 cm; Wt 58.6 kg
[2019-10-05 09:37] VITALS: BP 101/54
[~2019-10-05 09:37] MED LIST changes: +ASPI-630 PO; +ATOR10TA60 PO; +HYDR-2869 PO; +HYDR25TA10 PO; +LOSA100T14 PO
--- NOTE | 2019-10-05 09:52 | PHYS DOC ---
Past History Past Medical History: Arthritis, CAD, High Cholesterol, Hypertension, UTI Past Surgical History: Pacemaker, Other Additional Past Surgical Histo: pacemaker Alcohol Use: None Drug Use: None Adult General Chief Complaint Chief Complaint: MECHANICAL FALL HPI HPI Patient is a 89-year-old female who presents to the emergency department for evaluation. She states that she has had several falls over the past few days, and has injured her left ribs about 3 days ago in a fall, and is having persistent pain. She denies any shortness of breath but reports increased pain with movement and deep breathing. She denies any dizziness or lightheadedness, and Did not hit her head. She denies any other chest pain, cough, numbness, or weakness. She states she uses a walker at home, and she falls because her legs give out from arthritis. She states she does have a daughter who lives about 4 blocks away from her. She was hospitalized here for generalized weakness in August. There are no alleviating or exacerbating factors to her symptoms otherwise. Review of Systems Review of Systems Constitutional: Denies fever or chills [] Eyes: Denies change in visual acuity, redness, or eye pain [] HENT: Denies nasal congestion or sore throat [] Respiratory: Denies cough or shortness of breath [] Cardiovascular:The patient denies any shortness of breath, chest pain, palpitations, or orthopnea[] GI: Denies abdominal pain, nausea, vomiting, bloody stools or diarrhea [] : Denies dysuria or hematuria [] Musculoskeletal: Denies back pain or joint pain , other than pain in her knees from arthritis, which is chronic[] Integument: Denies rash or skin lesions [] Neurologic: Denies headache, focal weakness or sensory changes [] Endocrine: Denies polyuria or polydipsia [] All other systems were reviewed and found to be within normal limits, except as documented in this note. Current Medications Current Medications Current Medications Medications (Trade) Dose Ordered Sig/Keiry Start Time Stop Time Status Last Admin Dose Admin Acetaminophen (Tylenol) 650 mg 1X ONCE 10/05/19 10:00 10/05/19 10:01 Allergies Allergies Allergies Coded Allergies Type Severity Reaction Last Updated Verified Sulfa (Sulfonamide Antibiotics) Allergy Intermediate 12/06/18 Yes aspirin Allergy Intermediate 12/06/18 Yes carvedilol Allergy Intermediate 12/06/18 Yes cefdinir Allergy Intermediate 12/06/18 Yes ciprofloxacin Allergy Intermediate 12/06/18 Yes clarithromycin Allergy Intermediate 12/06/18 Yes codeine Allergy Intermediate 12/06/18 Yes eprosartan Allergy Intermediate 12/06/18 Yes etodolac Allergy Intermediate 12/06/18 Yes guaifenesin Allergy Intermediate 12/06/18 Yes levallorphan Allergy Intermediate 12/06/18 Yes meloxicam Allergy Intermediate 12/06/18 Yes methocarbamol Allergy Intermediate 12/06/18 Yes oxaprozin Allergy Intermediate 12/06/18 Yes penicillin G Allergy Intermediate 12/06/18 Yes quinine Allergy Intermediate 12/06/18 Yes ropinirole Allergy Intermediate 12/06/18 Yes sotalol Allergy Intermediate 12/06/18 Yes tetracycline Allergy Intermediate 12/06/18 Yes egg Allergy Mild 12/06/18 Yes Physical Exam Physical Exam PHYSICAL EXAM: CONSTITUTIONAL: Well developed, well nourished HEAD: normocephalic, atraumatic EENT: PERRL, EOMI. Conjunctivae normal color, sclerae non-icteric; moist mucous membranes. NECK: Supple, non-tender; no meningismus. LUNGS: Lungs CTA, breathing even and unlabored. Normal air movement. HEART: Regular rate and rhythm, there is a systolic ejection murmur CHEST: No deformity; there is mild tenderness to palpation to the left lateral chest wall without any crepitus. ABDOMEN: The abdomen is soft, and non-tender, no masses or bruits. EXTREM: Normal ROM; no deformity, no calf tenderness. Normal pulses palpable in all extremities. There is no pedal edema. SKIN: No rash; no diaphoresis NEURO: Alert; normal speech and cognition; CN's grossly intact; strength grossly intact without focal deficit. BACK: No CVA TTP. Current Patient Data Vital Signs Vital Signs Date Time Temp Pulse Resp B/P (MAP) Pulse Ox O2 Delivery O2 Flow Rate FiO2 10/05/19 09:37 97.6 88 18 101/54 (70) 95 Room Air EKG EKG []Normal sinus rhythm at a rate of 79 bpm with occasional APCs, left bundle branch block, lateral T wave inversion, without acute ischemic changes or significant changes compared to patient's prior EKGs. Radiology/Procedures Radiology/Procedures PROCEDURE: RIBS LEFT AND PA CHEST RIBS LEFT AND PA CHEST DATE: 10/05/2019 9:45 AM INDICATION: Fall, pain COMPARISON: None available. FINDINGS: Chest: Heart size is within normal limits. No focal consolidations are seen. Biapical subpleural fibrosis per No evidence for pulmonary edema, pleural effusion, or pneumothorax. Left pectoral pacemaker. Bones: No radiographic evidence for a displaced, left-sided rib fracture is seen. S-shaped scoliosis. IMPRESSION: No radiographic evidence for left-sided rib fracture.[] Course & Med Decision Making Course & Med Decision Making Pertinent Imaging studies reviewed. (See chart for details) []11:10 AM: Patient's condition remains stable. Her daughter is present in the emergency department. The patient does not want to consider going to an assisted living facility or other facility, I discussed with the patient's daughter the importance of working with the patient's PCP to establish additional home health care services for the patient, as her risk of falling again is great, and she would benefit from additional help. The importance of close PCP follow-up and return precautions were discussed in detail. The patient does ambulate with a walker and I discuss other measures that the patient and her family can take to try and reduce her fall risk. Dragon Disclaimer Dragon Disclaimer This electronic medical record was generated, in whole or in part, using a voice recognition dictation system. Departure Departure: Impression: Primary Impression: Rib contusion Additional Impression: Frequent falls Disposition: 01 HOME, SELF-CARE Condition: STABLE Referrals: HOMER AGUAYO MD (PCP) Patient Instructions: Fall Prevention and Home Safety, Rib Contusion Problem Qualifiers JUVENAL ZAPIEN MD Oct 05, 2019 09:51
[2019-10-05] MEDS ORDERED: ACETAMINOPHEN 325 MG TABLET PO ONE (10:00)
--- NOTE | 2019-10-05 10:57 | RAD ---
RIBS LEFT AND PA CHEST DATE: 10/05/2019 9:45 AM INDICATION: Fall, pain COMPARISON: None available. FINDINGS: Chest: Heart size is within normal limits. No focal consolidations are seen. Biapical subpleural fibrosis per No evidence for pulmonary edema, pleural effusion, or pneumothorax. Left pectoral pacemaker. Bones: No radiographic evidence for a displaced, left-sided rib fracture is seen. S-shaped scoliosis. IMPRESSION: No radiographic evidence for left-sided rib fracture. Electronically signed by: Sanjeev Anna MD (10/05/2019 10:54 AM) [id number]
--- NOTE | 2019-10-05 12:34 | EKG ---
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
== END 2019-10-05 11:20 | disposition home or self-care (01) ==
LOC: ER 09:37
DX: S20.212A Contusion of left front wall of thorax, initial encounter (principal); M19.90 Unspecified osteoarthritis, unspecified site; I25.10 Atherosclerotic heart disease of native coronary artery without angina pectoris; E78.00 Pure hypercholesterolemia, unspecified; I10 Essential (primary) hypertension; Z87.440 Personal history of urinary (tract) infections; Z91.81 History of falling; Z95.0 Presence of cardiac pacemaker; Z88.0 Allergy status to penicillin; Z88.1 Allergy status to other antibiotic agents; Z88.2 Allergy status to sulfonamides; Z88.6 Allergy status to analgesic agent; Z88.8 Allergy status to other drugs, medicaments and biological substances; Z91.012 Allergy to eggs; Z88.5 Allergy status to narcotic agent; W18.39XA Other fall on same level, initial encounter; Y93.89 Activity, other specified; Y92.89 Other specified places as the place of occurrence of the external cause; Y99.8 Other external cause status
CPT/HCPCS: 71101; 93005; 99284

== ENCOUNTER 2019-11-01 10:59 | Emergency (ER) | payer MEDICARE, BC ==
[~2019-11-01] VITALS: Ht 157.5 cm; Wt 57.1 kg
[2019-11-01] MEDS ORDERED: MORPHINE SULFATE 2 MG/ML DISP.SYRIN. IV ONE (11:15)
[2019-11-01] MEDS ORDERED: ONDANSETRON PF 4 MG/2 ML VIAL. IVP ONE (11:30)
--- NOTE | 2019-11-01 11:31 | PHYS DOC ---
Past History Past Medical History: Arthritis, CAD, High Cholesterol, Hypertension, UTI Past Surgical History: Pacemaker, Other Additional Past Surgical Histo: pacemaker Alcohol Use: None Drug Use: None Adult General Chief Complaint Chief Complaint: MECHANICAL FALL HPI HPI 89-year-old female presents after fall at home. She was walking with her walker but also caring some. From the kitchen when she slipped and fell onto her right hip. She was unable to get up. When EMS arrived they noticed that it appeared to be rotated and have some deformity laterally. The patient is tolerating the pain well. She states it is 3 out of 10. She denies hitting her head. She did not lose consciousness. She has no other complaints at this time. Review of Systems Review of Systems Constitutional: Denies fever or chills [] Eyes: Denies change in visual acuity, redness, or eye pain [] HENT: Denies nasal congestion or sore throat [] Respiratory: Denies cough or shortness of breath [] Cardiovascular: No additional information not addressed in HPI [] GI: Denies abdominal pain, nausea, vomiting, bloody stools or diarrhea [] : Denies dysuria or hematuria [] Musculoskeletal: Right hip pain [] Integument: Denies rash or skin lesions [] Neurologic: Denies headache, focal weakness or sensory changes [] Endocrine: Denies polyuria or polydipsia [] All other systems were reviewed and found to be within normal limits, except as documented in this note. Current Medications Current Medications Current Medications Medications (Trade) Dose Ordered Sig/Keiry Start Time Stop Time Status Last Admin Dose Admin Morphine Sulfate (Morphine 2mg Syringe) 2 mg 1X ONCE 11/01/19 11:15 11/01/19 11:16 UNV Ondansetron HCl (Zofran) 4 mg 1X ONCE 11/01/19 11:30 11/01/19 11:31 Allergies Allergies Allergies Coded Allergies Type Severity Reaction Last Updated Verified Sulfa (Sulfonamide Antibiotics) Allergy Intermediate 12/06/18 Yes aspirin Allergy Intermediate 12/06/18 Yes carvedilol Allergy Intermediate 12/06/18 Yes cefdinir Allergy Intermediate 12/06/18 Yes ciprofloxacin Allergy Intermediate 12/06/18 Yes clarithromycin Allergy Intermediate 12/06/18 Yes codeine Allergy Intermediate 12/06/18 Yes eprosartan Allergy Intermediate 12/06/18 Yes etodolac Allergy Intermediate 12/06/18 Yes guaifenesin Allergy Intermediate 12/06/18 Yes levallorphan Allergy Intermediate 12/06/18 Yes meloxicam Allergy Intermediate 12/06/18 Yes methocarbamol Allergy Intermediate 12/06/18 Yes oxaprozin Allergy Intermediate 12/06/18 Yes penicillin G Allergy Intermediate 12/06/18 Yes quinine Allergy Intermediate 12/06/18 Yes ropinirole Allergy Intermediate 12/06/18 Yes sotalol Allergy Intermediate 12/06/18 Yes tetracycline Allergy Intermediate 12/06/18 Yes egg Allergy Mild 12/06/18 Yes Physical Exam Physical Exam Constitutional: Well developed, well nourished, no acute distress, non-toxic appearance. [] HENT: Normocephalic, atraumatic, bilateral external ears normal, oropharynx moist, no oral exudates, nose normal. [] Eyes: PERRLA, EOMI, conjunctiva normal, no discharge. [] Neck: Normal range of motion, no tenderness, supple, no stridor. [] Cardiovascular: Heart rate regular rhythm, no murmur [] Lungs & Thorax: Bilateral breath sounds clear to auscultation [] Abdomen: Bowel sounds normal, soft, no tenderness, no masses, no pulsatile masses. [] Skin: Warm, dry, no erythema, no rash. [] Back: No tenderness, no CVA tenderness. [] Extremities: Right leg externally rotated and shortened, tenderness over the right hip. [] Neurologic: Alert and oriented X 3, normal motor function, normal sensory function, no focal deficits noted. [] Psychologic: Affect normal, judgement normal, mood normal. [] EKG EKG Paced rhythm, rate 66[] Radiology/Procedures Radiology/Procedures [] Impressions: HIP RIGHT 2V WITH PELVIS History: Fall, deformity Comparison: October 20, 2017 Findings: AP view of the pelvis and 2 additional views of the right hip are submitted. There is now displaced intertrochanteric fracture of the right femur, also vertically oriented, displaced fracture involving the lesser trochanter with bone fragment somewhat displaced medially. There is some overriding of the fracture fragments, also angulation with apex directed superiorly. Right femoral head articulates normally with the acetabulum. There is vascular calcification. There is hardware of the proximal left femur which is not fully included. There is lumbar levoscoliosis and multilevel degenerative disc disease, not fully evaluated. Impression: 1. There is comminuted, displaced, angulated, intertrochanteric fracture of the proximal right femur. There is displacement of the lesser trochanter fragment medially. 2. There is multilevel lumbar degenerative disc disease. There is lumbar levoscoliosis. 3. There is hardware of the proximal left femur. Electronically signed by: Abrahan Faith MD (11/01/2019 12:17 PM) [facility] DICTATED AND SIGNED BY: ABRAHAN FAITH MD DATE: 11/01/19 1217 CC: ANJEL MORRISON DO; HOMER AGUAYO MD ~ Course & Med Decision Making Course & Med Decision Making Pertinent Labs and Imaging studies reviewed. (See chart for details) The patient's labs are unremarkable. Her chest x-ray is negative for acute findings. Her hip x-ray does show comminuted fracture with displacement of the right proximal femur. I spoke with Dr. Bennett, orthopedic surgeon and he would like the patient transferred to [facility]. He plans to do surgery tomorrow morning. Spoke with hospitalist at [facility], Dr. Ramirez and he has accepted the patient for transfer and admission. [] Dragon Disclaimer Dragon Disclaimer This electronic medical record was generated, in whole or in part, using a voice recognition dictation system. Departure Departure: Impression: Primary Impression: Right femoral fracture Disposition: 02 XFER SHT-TRM HOSP Condition: STABLE Referrals: HOMER AGUAYO MD (PCP) Problem Qualifiers Primary Impression: Right femoral fracture Encounter type: initial encounter Femur location: greater trochanter Fracture type: closed Fracture alignment: displaced Qualified Codes: S72.111A - Displaced fracture of greater trochanter of right femur, initial encounter for closed fracture ANJEL MORRISON DO Nov 01, 2019 11:31
[2019-11-01 11:46] LABS: BASO % 0 % (0-3); EOS # 0.1 x10^3/uL (0.0-0.7); EOS % 1 % (0-3); HEMATOCRIT 40.1 % (36.0-47.0); HEMOGLOBIN 13.1 g/dL (12.0-15.5); LYMPH # 0.6 x10^3/uL (1.0-4.8); LYMPH % 9 % (24-48); MEAN CORPUSCULAR HEMOGLOBIN 31 pg (25-35); MEAN CORPUSCULAR HGB CONC 33 g/dL (31-37); MEAN CORPUSCULAR VOLUME 94 fL (79-100); MONO # 0.6 x10^3/uL (0.0-1.1); MONO % 8 % (0-9); NEUT # 6.1 x10^3uL (1.8-7.7); NEUT % 82 % (31-73); PLATELET COUNT 241 x10^3/uL (140-400); RED BLOOD COUNT 4.28 x10^6/uL (3.50-5.40); RED CELL DISTRIBUTION WIDTH 14.6 % (11.5-14.5); WHITE BLOOD COUNT 7.4 x10^3/uL (4.0-11.0)
[2019-11-01 11:52] LABS: CALCIUM 9.3 mg/dL (8.5-10.1); GFR 52.4; POTASSIUM 3.6 mmol/L (3.5-5.1)
[2019-11-01 11:57] LABS: ALBUMIN 3.2 g/dL (3.4-5.0); ALBUMIN/GLOBULIN RATIO 1.1 (1.0-1.7); TOTAL BILIRUBIN 0.5 mg/dL (0.2-1.0); TOTAL PROTEIN 6.2 g/dL (6.4-8.2)
--- NOTE | 2019-11-01 12:19 | RAD ---
Single view chest dated 11/01/2019. Comparison made to 08/13/2019. Clinical data indication: Pain after fall. FINDINGS: Single upright portable exam performed. Heart and mediastinal contours are stable. There is tortuosity of thoracic aorta with scoliotic curvature, unchanged. Left subclavian pacer in place, unchanged. Lungs are somewhat hyperinflated but otherwise clear. No consolidation or pleural effusion. No pneumothorax. IMPRESSION: No acute radiographic abnormality. Stable findings compared to 08/13/2019. Electronically signed by: Carlos Palacios MD (11/01/2019 12:15 PM) [facility] [place]
--- NOTE | 2019-11-01 12:20 | RAD ---
HIP RIGHT 2V WITH PELVIS History: Fall, deformity Comparison: October 20, 2017 Findings: AP view of the pelvis and 2 additional views of the right hip are submitted. There is now displaced intertrochanteric fracture of the right femur, also vertically oriented, displaced fracture involving the lesser trochanter with bone fragment somewhat displaced medially. There is some overriding of the fracture fragments, also angulation with apex directed superiorly. Right femoral head articulates normally with the acetabulum. There is vascular calcification. There is hardware of the proximal left femur which is not fully included. There is lumbar levoscoliosis and multilevel degenerative disc disease, not fully evaluated. Impression: 1. There is comminuted, displaced, angulated, intertrochanteric fracture of the proximal right femur. There is displacement of the lesser trochanter fragment medially. 2. There is multilevel lumbar degenerative disc disease. There is lumbar levoscoliosis. 3. There is hardware of the proximal left femur. Electronically signed by: Sanjeev Ryan MD (11/01/2019 12:17 PM) [facility]
[2019-11-01] MEDS ORDERED: ACETAMINOPHEN 325 MG TABLET PO ONE (12:30)
[2019-11-01 13:36] VITALS: BP 145/60
== END 2019-11-01 14:50 | disposition short-term general hospital (02) ==
LOC: ER 10:59
DX: S72.141A Displaced intertrochanteric fracture of right femur, initial encounter for closed fracture (principal); M19.90 Unspecified osteoarthritis, unspecified site; I25.10 Atherosclerotic heart disease of native coronary artery without angina pectoris; E78.00 Pure hypercholesterolemia, unspecified; I10 Essential (primary) hypertension; Z87.440 Personal history of urinary (tract) infections; Z95.0 Presence of cardiac pacemaker; Z88.2 Allergy status to sulfonamides; Z88.6 Allergy status to analgesic agent; Z88.1 Allergy status to other antibiotic agents; Z88.5 Allergy status to narcotic agent; Z88.0 Allergy status to penicillin; Z88.8 Allergy status to other drugs, medicaments and biological substances; W01.0XXA Fall on same level from slipping, tripping and stumbling without subsequent striking against object, initial encounter; Y93.01 Activity, walking, marching and hiking; Y92.098 Other place in other non-institutional residence as the place of occurrence of the external cause; Y99.8 Other external cause status
CPT/HCPCS: 36415; 71045; 73502; 80053; 85025; 85610; 85730; 96374; 99285; J2405

== ENCOUNTER 2021-09-06 13:10 | Emergency (ER) | payer MEDICARE, BC ==
[~2021-09-06] VITALS: Ht 165.1 cm; Wt 59.0 kg
[~2021-09-06 13:10] MED LIST changes: -VALS1TAB18 PO; +VALS1TAB19 PO
--- NOTE | 2021-09-06 13:51 | PHYS DOC ---
Past History Past Medical History: Arthritis, CAD, High Cholesterol, Hypertension, UTI Past Surgical History: Pacemaker Additional Past Surgical Histo: pacemaker Alcohol Use: None Drug Use: None Adult General Chief Complaint Chief Complaint: COUGH HPI HPI Patient is an 89-year-old female presenting via EMS for a cough. Patient reports being at baseline health but today, when evaluated by home health nurse patient had a cough with yellow sputum which concerned nurse prompting EMS to be called. Patient reports she is otherwise been at baseline health with no recent known sick contacts, travel or change in baseline medications. She has been afebrile, states she is just had a productive cough that has been more bothersome when supine. No prior lung conditions, no smoking history or diagnosed reactive airway disease/COPD etc. She is unvaccinated against COVID- 19 Review of Systems Review of Systems Fourteen body systems of review of systems have been reviewed. See HPI for pertinent positives and negative responses, other novak all other systems are negative, non-pertinent or non-contributory Allergies Allergies Allergies Coded Allergies Type Severity Reaction Last Updated Verified Sulfa (Sulfonamide Antibiotics) Allergy Intermediate 12/06/18 Yes aspirin Allergy Intermediate 12/06/18 Yes carvedilol Allergy Intermediate 12/06/18 Yes cefdinir Allergy Intermediate 12/06/18 Yes ciprofloxacin Allergy Intermediate 12/06/18 Yes clarithromycin Allergy Intermediate 12/06/18 Yes codeine Allergy Intermediate 12/06/18 Yes eprosartan Allergy Intermediate 12/06/18 Yes etodolac Allergy Intermediate 12/06/18 Yes guaifenesin Allergy Intermediate 12/06/18 Yes levallorphan Allergy Intermediate 12/06/18 Yes meloxicam Allergy Intermediate 12/06/18 Yes methocarbamol Allergy Intermediate 12/06/18 Yes oxaprozin Allergy Intermediate 12/06/18 Yes penicillin G Allergy Intermediate 12/06/18 Yes quinine Allergy Intermediate 12/06/18 Yes ropinirole Allergy Intermediate 12/06/18 Yes sotalol Allergy Intermediate 12/06/18 Yes tetracycline Allergy Intermediate 12/06/18 Yes egg Allergy Mild 12/06/18 Yes Physical Exam Physical Exam Constitutional: Well developed, well nourished, no acute distress, non-toxic appearance. HENT: Normocephalic, atraumatic, bilateral external ears normal, oropharynx mois t, no oral exudates, nose normal. Eyes: PERRLA, EOMI, conjunctiva normal, no discharge. Neck: Normal range of motion, no tenderness, supple, no stridor. Cardiovascular: Heart rate regular, sinus rhythm, no murmurs rubs or gallops Lungs & Thorax: Bilateral breath sounds clear to auscultation Abdomen: Bowel sounds normal, soft, no tenderness, no masses, no pulsatile masses. Nonsurgical abdomen, no peritoneal signs Skin: Warm, dry, no erythema, no rash. Back: No tenderness, no CVA tenderness. Extremities: No tenderness, no cyanosis, no clubbing, ROM intact, no edema. Neurologic: Alert and oriented X 3, grossly normal motor & sensory function, no focal deficits noted. Psychologic: Affect normal, judgement normal, mood normal. Current Patient Data Vital Signs Vital Signs Date Time Temp Pulse Resp B/P (MAP) Pulse Ox O2 Delivery O2 Flow Rate FiO2 09/06/21 13:20 97.7 80 20 143/75 (97) 95 Room Air EKG EKG EKG ordered and interpreted by myself at 1400 hrs. as sinus rhythm at 77 bpm, prolonged QRS at 158 and QTC at 502, left axis deviation, T wave inversion noted in lead I and aVL, Radiology/Procedures Radiology/Procedures [] Heart Score C/O Chest Pain: No Risk Factors: Risk Factors: DM, Current or recent (<one month) smoker, HTN, HLP, family history of CAD, obesity. Risk Scores: Risk Factors: DM, Current or recent (<one month) smoker, HTN, HLP, family history of CAD, obesity. Course & Med Decision Making Course & Med Decision Making ABCs unremarkable HPI physical exam and comprehensive ER work-up nonconcerning for any emergent or surgical issues Patient positive for COVID-19 with findings concerning for developing pneumonia. Given extensive allergies, joint decision made to start azithromycin with first dose given in ER and tolerated well Appropriate supportive care practices and self quarantine instructions given with close PCP follow-up when safe to do so per CDC recommendations in an unvaccinated individual. Patient hemodynamically stable with no indication for further diagnostic work-up nor need for hospitalization at present. Patient discharged Dragon Disclaimer Dragon Disclaimer This electronic medical record was generated, in whole or in part, using a voice recognition dictation system. Departure Departure: Impression: Primary Impression: COVID-19 Disposition: HOME / SELF CARE / HOMELESS Condition: STABLE Referrals: HOMRE AGUAYO MD (PCP) Additional Instructions: You have been diagnosed with COVID-19. It is an infection caused by a new type of coronavirus. COVID-19 will cause cold-like or mild flu symptoms in most. It can cause more severe symptoms like problems breathing in some. There is no treatment for COVID-19. The body will clear the infection over time. Self-care will help to ease discomfort. Steps to Take: Self-Care Rest as needed. Healthy habits may help you feel better. Steps include: Choose healthy foods including fruits and vegetables. Drink water throughout the day. Get plenty of sleep each night. If you smoke, try to quit. It may ease breathing. Avoid alcohol. Keep Others Healthy The virus can spread to others. Droplets are released every time you sneeze or cough. The droplets can get into the mouth, nose, or eyes of people near you and lead to infection. To lower the chances of spreading COVID-19 to others: Stay at home until your doctor has said it is safe to leave. If you tested positive this will mean staying isolated per CDC guidelines depending on your vaccination status - Avoid public areas, events, or transportation. Do not return to work or school until your doctor has said it is safe to do so. - Call ahead if you need to go to a medical center. Let them know you may have COVID-19. It will help them guide you where to go. They may also ask you to wear a facemask when you come to the office. - If you call for emergency medical services, let them know you may have COVID- 19. While at home: - Try to avoid close contact with others. Stay about 6 feet away. - If possible, spend most of your time in a separate room from others. - Use a face mask if you will be in close contact with others such as sharing a room or vehicle. - Have someone wipe down common surfaces in the home. Use household inpatient nursing aide every day on areas like doorknobs, counters, or sinks. - Cough or sneeze into a tissue. Throw the tissue away right after use. If a tissue is not available, cough or sneeze into your elbow. - Wash your hands often. Wash them after sneezing or coughing. Use soap and water and wash for at least 20 seconds. Alcohol based hand wallpaper cleaner can be used if soap and water is not available. - Do not prepare food for others. Avoid sharing personal items like forks, spoons, or toothbrushes. - Avoid close contact with pets while you are sick. There is no evidence of the virus passing to pets. This is a safety step until more is known about this virus. Isolation can be frustrating. Social interaction can help. Keep in touch with friends and family through phone and tech options. You can still interact with others in your home, just keep a safe distance of about 6 feet. Follow-up: Your doctors office will check in with you to see if there are any changes in your health. You may be asked to keep track of symptoms to share with them. They will also let you know when you are clear to be in public again. Problems to Look Out For: Contact your doctor if your recovery is not going as you expect. Get emergency care if you have problems such as: - Trouble breathing - Nonstop chest pain or pressure - Changes in awareness, confusion, or problems waking - Lips or face have bluish color - Worsening of symptoms If you think you have an emergency, call for emergency medical services right away. Scripts Azithromycin (AZITHROMYCIN TABLET) 250 Mg Tablet 250 MG PO DAILY for ANTI-BIOTIC, #4 TAB 0 Refills Prov: OTIS GAITAN DO 09/06/21 OTIS GAITAN DO Sep 06, 2021 13:51
--- NOTE | 2021-09-06 14:15 | RAD ---
XR CHEST 1V History: Reason: cough / Spl. Instructions: / History: Comparison: November 01, 2019 Findings: Mild ill-defined bibasilar opacities. No pleural effusion. Mild elevation of the right hemidiaphragm. Unchanged heart size. Tortuous thoracic aorta. Stable left-sided pacemaker. No pneumothorax. Impression: 1. Mild ill-defined bibasilar opacities, may represent atelectasis or developing infiltrates. Electronically signed by: John King DO (09/06/2021 2:13 PM) [facility]
[2021-09-06 14:38] LABS: INFLUENZA A PATIENT NEGATIVE (NEGATIVE); INFLUENZA B PATIENT NEGATIVE (NEGATIVE)
--- NOTE | 2021-09-06 14:53 | EKG ---
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
[2021-09-06] MEDS ORDERED: AZIT250T6 PO (15:06)
[2021-09-06] MEDS: AZITHROMYCIN 250 MG TABLET. PO ONE (15:37)
[2021-09-06 15:45] VITALS: BP 178/86
== END 2021-09-06 16:11 | disposition home or self-care (01) ==
LOC: ER 13:10
DX: U07.1 COVID-19 (principal); M19.90 Unspecified osteoarthritis, unspecified site; I25.10 Atherosclerotic heart disease of native coronary artery without angina pectoris; E78.00 Pure hypercholesterolemia, unspecified; I10 Essential (primary) hypertension; Z87.440 Personal history of urinary (tract) infections; Z95.0 Presence of cardiac pacemaker; Z88.2 Allergy status to sulfonamides; Z88.6 Allergy status to analgesic agent; Z88.1 Allergy status to other antibiotic agents; Z88.5 Allergy status to narcotic agent; Z88.0 Allergy status to penicillin; Z88.8 Allergy status to other drugs, medicaments and biological substances; Z91.012 Allergy to eggs
CPT/HCPCS: 71045; 87428; 93005; 99285